=== PATIENT | female | born 1970 | race Caucasian/White ===

== ENCOUNTER 2020-04-13 07:02 | Day surgery (SDC) | payer BC, SELFPAY ==
--- NOTE | 2020-04-10 17:34 | PCM.HPOB.BLA ---
- Problem List (1) DUB (dysfunctional uterine bleeding) Status: Acute History and Physical Date of Admission: 04/13/20 DATE OF SERVICE: March 31, 2020 PROBLEM: menorrhagia with regular cycle, desires permanent sterilization DIAGNOSIS: menorrhagia with regular cycle SUBJECTIVE: Cycles are regular but heavy. Not currently having vaginal intercourse. Not on control at this time. PAST SURGICAL HISTORY: PAST SURGICAL HISTORY PAST MEDICAL HISTORY SOCIAL HISTORY Current Outpatient Medications on File Prior to Visit Medication Sig ? hydrOXYzine pamoate (VISTARIL) 25 mg capsule Take 1 capsule by mouth three times daily as needed for Anxiety. ? SITagliptin (JANUVIA) 100 mg tablet Take 1 tablet by mouth once daily. ? busPIRone (BUSPAR) 7.5 mg tablet Take 1 tablet by mouth twice daily. ? dapagliflozin (FARXIGA) 5 mg tablet Take 1 tablet by mouth once daily. Take one daily in the morning ? buPROPion XL (WELLBUTRIN XL) 150 mg 24 hr tablet Take 1 tablet by mouth once daily. ? DULoxetine (CYMBALTA) 60 mg capsule Take 1 capsule by mouth once daily. ? gabapentin (NEURONTIN) 300 mg capsule Take 1 capsule by mouth twice daily for 90 days. ? metFORMIN ER (GLUCOPHAGE XR) 500 mg 24 hr tablet Take 1 tablet by mouth once daily. ? glimepiride (AMARYL) 4 mg tablet Take 1 tablet by mouth twice daily with meals. ? blood sugar diagnostic (ACCU-CHEK SONIA PLUS TEST STRP) test strip Test blood sugar(s) 1 times daily and as needed. Dx: Type 2 DM - Controlled E11.9 Insulin: No ? pantoprazole DR (PROTONIX) 40 mg tablet Take 1 tablet by mouth once daily. ? nadolol (CORGARD) 40 mg tablet Take 1 tablet by mouth once daily. ? losartan (COZAAR) 100 mg tablet Take 1 tablet by mouth once daily. ? atorvastatin (LIPITOR) 10 mg tablet Take 1 tablet by mouth daily at bedtime. For cholesterol. ? Blood-Glucose Meter (ONETOUCH ULTRA2 METER) monitoring kit 1 Each as needed. One Touch Meter Kit Diagnosis: Type 2 DM - Controlled E11.9 ? Lancets (ONETOUCH ULTRASOFT LANCETS) lancets Test blood sugar(s) 2 times daily. Dx: Type 2 DM - Controlled E11.9 , Insulin: No ? traZODone (DESYREL) 50 mg tablet Take 1 tablet by mouth daily at bedtime. ? albuterol HFA (PROVENTIL HFA, VENTOLIN HFA) 90 mcg/actuation inhaler Inhale 2 Puffs as instructed every 4 hours as needed for Wheezing/Shortness of Breath. ? Lancets (ACCU-CHEK SOFTCLIX LANCETS) lancets Use as directed. Dx: Type 2 DM - Controlled E11.9 Insulin: No ? CPAP Initiate Auto PAP @ 8-20 cm of water with humidification. Mask: medium [employer] Eson nasal mask without chin strap , filters, tubing, humidifier and lifetime supplies. ? aspirin, enteric coated (ASPIRIN, ENTERIC COATED) 81 mg EC tablet Take 81 mg by mouth once daily. No current facility-administered medications on file prior to visit. ALLERGIES Impression Normal appearing anteverted uterus that measures 97 mm x 48 mm x 53 mm. The central endometrium complex measures 8.1 mm in combined thickness. No abnormal blood flow to suggest a polyp or focal endometrial pathology is observed within the endometrial complex. The contour of the endometrial cavity was normal on 3-D imaging. There is a 5 cm simple appearing cyst in the right ovary. The left ovary is not visualized. There is no free fluid visualized in the peritoneal cavity. Recommendations The simple ovarian cyst is likely benign. Follow up as clinically indicated. EMB: FINAL DIAGNOSIS Endometrium, biopsy (A): - Secretory endometrium. OBJECTIVE: VITALS: BP 120/78 Pulse 80 Resp 14 Ht 5' 3.5 (1.613 m) Wt 210 lb 9.6 oz (95.5 kg) LMP 02/06/2020 BMI 36.72 kg/m? HEENT: Normocephalic, atraumatic, Mucus membranes moist without lesions. NECK: Soft and Supple. No adenopathy , thyromegaly or bruits. SKIN: No lesions. CHEST: Clear to auscultation. No wheezes or rales. Good air exchange. HEART: Regular rate and rhythm No S3 or S4. No gallops or rubs. BACK: Nontender with no CVA tenderness. ABDOMEN: Soft, non-tender, non-distended, no masses, no hepatosplenomegaly. LOWER EXTREMITIES: There was no pitting edema, no palpable cords and no skin changes. ASSESSMENT: menorrhagia, desires permanent sterilization PLAN: Discussed hysteroscopy, D&C, ablation, laparoscopic bilateral salpingectomy. Discussed options for control. She understands a salpingectomy is permanent and irreversible. Discussed that it is likely the ovarian cyst has resolved at this time. Reviewed indications for cystectomy or oophorectomy, and she agrees with a cystectomy or oophorectomy if the cyst has significantly enlarged in size or has concerning features at time of laparoscopy. The rationale for the proposed surgery was discussed in addition to risks, benefits, and alternatives. General pre- and post-operative care was reviewed. Questions were answered. After discussion, the patient indicated a desire to proceed with the planned surgery. Merced Gomez, DO
[2020-04-13] VITALS (7 sets, daily range): BP systolic 118–139; BP diastolic 60–85; PULSE 70–91; RESP 16–18; TEMP 36.4–37.3; O2SAT 92–99; BMI 37.0
[2020-04-13] MEDS: Lactated Ringers 1,000 ML 100 ML IV ×2 (07:25→10:21)
[2020-04-13 07:39] LABS: Internal QC Validated? YES +Cl - CLEAR BKGD; Pregnancy, Urine Negative Negative
[2020-04-13 08:05] LABS: Bedside Glucose 131 mg/dL (70-110)
--- NOTE | 2020-04-13 08:40 | FALS_PTH ---
PATIENT: KAMILA IRIZARRY [place] [facility] [place][id number] AGE/SX: 50/F ROOM: RE04/13/[address]: Dr. Merced Gomez DO : 1970 BED: DIS: 04/13/2020 SPEC #: [id number] RECD: 04/13/20 11:14 STATUS: BORA EL #: [id number] JODI: 04/13/20 08:[address]: Merced Gomez DEPT: SURGICAL PATHOLOGY RECD BY: Corina Petty ENTERED: 04/13/20 12:27 SP TYPE: FALL TUBES OTHR DR: Dr. Adalberto Nolasco MD Tissues: A - Fallopian tube B - Endometrium, NOS Procedures: Surgery Specimen Level II Surgery Specimen Level IV HEADER OPERATION: Hysteroscopy, D & C, Anne ablation PRE-OP DIAGNOSIS: Dysfunctional uterine bleeding TISSUE SUBMITTED: A - Bilateral tubes, B - Endometrial curettings MICROSCOPIC DIAGNOSIS A. Bilateral fallopian tubes, salpingectomy: Bilateral fallopian tubes including fimbrial ends, no pathologic diagnosis. B. Endometrial curettings: Proliferative endometrium. Fragments of benign ecto- and endocervical mucosa. NANCI:mira 04/14/2020 MICROSCOPIC DESCRIPTION Slides are reviewed. GROSS DESCRIPTION A - Received in fixative is one container labeled with the patient's name and designated bilateral fallopian tubes. The specimen consists of bilateral fallopian tubes including fimbrial ends measuring 2.5 cm in length and 0.5 cm in diameter and 2 cm in length and 0.5 cm in diameter. The fallopian tubes are not identified as right or left. Sections reveal unremarkable cut surfaces. Also present in the container are two detached pieces of tubular ruiz soft tissue measuring 1 x 0.5 x 0.5 cm and 0.5 x 0.5 x 0.5 cm. The entire specimen is submitted in two cassettes as follows: 1 - one fallopian tube, 2 - second fallopian tube and detached pieces of tissue. B - Received in fixative is one container labeled with the patient's name and designated endometrial curettings. The specimen consists of multiple fragments of pink hemorrhagic soft tissue that in aggregate measure 3 x 2.5 x 0.3 cm. The specimen is totally submitted in one cassette. / NANCI:mira 04/13/20 TC:4 CPT: 34900, 77946 x2
--- NOTE | 2020-04-13 09:08 | DCINST_ITS ---
- Discharge Diagnoses Current Active Problems: Current Active and Chronic Problems DUB (dysfunctional uterine bleeding) (Acute) You will use the following diet at home:: Regular Your food should be the consistency of: Regular Discharge Activity: May Not Drive - until you feel strong enough to slam on a brake or turn a steering wheel sharply, May not drive while taking narcotic pain medications., May Shower May shower in (days): 1 May resume sexual activity in: 1 week - no tampons, no intercourse, no hot tubs, no tub baths for 1 week Ice area for (Minutes): 15 Weight Bearing Status: Weight bearing as tolerated Lifting Restrictions: Nothing greater than 20 lbs for 2 weeks Call your doctor if your incision/area has: Sudden Increased Bleeding, Increased Pain/ Swelling, Increased Redness, Foul Smelling Discharge, Swelling at the incision site Call your doctor if you observe: Fever of 101 or Higher, Inability to urinate, Inability to have a bowel movement, Using more than one pad per hour, Shortness of breath, Dizziness, Fainting spells, Swelling in the ankles, Chest pain, Increased palpitations (irregular heartbeat), Calf discomfort, Uncontrolled pain Suture Line Care: Avoid Pulling/Pushing, Avoid Pinching/Bending Cleanse incision/area with: Soap & Water Allergies/Adverse Reactions: Allergies morphine Adverse Reaction (Verified 04/13/20 07:40) Nausea/Vom/Diarrhea Medications to take at Discharge Glimepiride 4 tab PO BID 06/06/16 Losartan Potassium 100 mg PO DAILY 06/06/16 Metformin HCl [Metformin HCl ER] 500 mg PO DAILY 06/06/16 Nadolol 40 mg PO DAILY 06/06/16 Pantoprazole Sodium [Protonix] 40 mg PO DAILY 06/06/16 Aspirin [Aspirin EC] 81 mg PO DAILY 04/06/20 Atorvastatin Calcium [Lipitor] 10 mg PO QHS 04/06/20 Bupropion HCl [Bupropion Xl] 150 mg PO DAILY 04/06/20 Buspirone HCl 7.5 mg PO BID 04/06/20 Dapagliflozin Propanediol [Farxiga] 5 mg PO DAILY 04/06/20 Duloxetine HCl 60 mg PO DAILY 04/06/20 Gabapentin [Neurontin] 300 mg PO BIDCM 04/06/20 traZODone [Desyrel] 50 mg PO QHS 04/06/20 Primary Care Physician: Adalberto Nolasco MD [Primary Care Provider] - Test Results: Test results from this visit will be discussed in further detail at your follow- up appointment, if applicable. Please Follow Up With: Merced Gomez, When: 1 week
--- NOTE | 2020-04-13 09:17 | OP.PCM_ITS ---
Problem List (1) DUB (dysfunctional uterine bleeding) Status: Acute (2) Request for sterilization Status: Acute Report of Operation Date of Procedure: 04/13/20 Pre-Operative Diagnosis: Menorrhagia, DUB, desires sterilization Post-Operative Diagnosis: As above, endometriosis Surgery/Procedure Performed:: Laparoscopic bilateral salpingectomy, hysteroscopy, D&C, Anne ablation Description of Surgical Findings:: The bilateral fallopian tubes were adhered to the ovaries. The bowel was minimally adhered to the right adnexa with thin, filmy adhesions. There was one endometriosis lesion noted along the left IP ligament. The uterus was normal- appearing. The right ovary was normal-appearing. The left ovary had a small, about 2 cm, simple cyst present. The posterior cul-de-sac was normal-appearing. Minimal descent of uterus and cervix from below. registered safety engineer: Kelton Dewitt - He assisted with prepping and draping the patient. He assisted with the laparoscopic bilateral salpingectomy from start to finish. He closed the port sites. Type of Anesthesia:: General Special Medications: None Specimen's removed: Bilateral fallopian tubes, endometrial curettings Drains: None Estimated Blood Loss (mL): < 50 cc Description of Procedure: Start 09 Stop 1054 The patient was taken to the operating room and general anesthesia was found to be adequate. She was prepped and draped in dorsal lithotomy position using yellowfin stirrups. A weighted speculum was placed from below and the single- tooth tenaculum was placed on the anterior lip of the cervix. The uterine manipulator was placed. Gloves were changed and attention was turned to the abdominal portion of the procedure. All port sites were infiltrated with local. An incision was made infraumbilically to accommodate a 5 mm port. This port was placed under direct visualization using the laparoscope. Once confirmed intraperitoneal, CO2 insufflation was initiated. A right lateral 5 mm port was placed. A left lateral 5 mm port was placed. Findings were noted as above. The thin filmy adhesions of the bowel to the right adnexa were dissected with blunt dissection. The right fallopian tube was followed out to the fimbriated end. The right fallopian tube was dissected from the right ovary to remove the entire tube. The right fallopian tube was removed in 3 separate segments due to adhesive disease. The left fallopian tube was then followed out to the fimbriated end, adhesions to the ovary were dissected using a combination of sharp and blunt dissection. The left fallopian tube was removed completely. Bilateral fallopian tubes were sent to pathology for review. Bleeding was hemostatic. The abdomen was exsufflated. The port sites were closed with Monocryl and Dermabond glue. Attention was then turned back to the bottom portion of the procedure. A weighted speculum was placed in the vagina. The uterine manipulator was removed. The cervix was serially dilated to accommodate the hysteroscope. Hysteroscope was advanced to the fundus of the uterus and distended with normal saline. Uterine cavity was normal-appearing and bilateral tubal ostia were visualized. There were no polyps or fibroids noted. Hysteroscope was then removed. The uterus sounded to 10 cm. The cervical length was 4 cm. A sharp curettage was performed and the endometrial curettings were sent to pathology for review. The Anne device was then set to a cavity length of 6 cm. The device was then inserted to the fundus of the uterus. The cavity assessment failed. The Anne device was removed and the uterus was sounded and assessed for perforation. No perforation was noted. The cervix was noted to be significantly dilated not allowing for good seal. The Anne device was then placed to the fundus of the uterus and set. An Allis clamp was placed around the posterior lip of the cervix to create a good seal. The Anne device then passed the cavity assessment test. The Anne device was deployed and after cauterization was complete the device was removed from the uterus. All instruments were removed from the vagina. Bleeding was hemostatic. Instrument sponge counts were correct. Patient was taken recovery room in stable condition. Grafts/Implants Used: None - Complications None - Admit VTE Documentation VTE Present on Admission: No VTE Mechan Device Prophylaxis: SCD's
[2020-04-13] MEDS: Lidocaine 1%/Epi 1:200 (30ml) 30 ML AMPUL (09:49)
[2020-04-13 11:51] LABS: Bedside Glucose 178 mg/dL (70-110)
[2020-04-13] MEDS: HYDROcodone Bitartrate/Apap 5/325 Tablet PO (12:26)
== END 2020-04-13 13:22 | disposition home or self-care (01) ==
LOC: SDC 07:02 → AC 07:03
PROVIDERS: Anesthesiology; PCP Family Medicine; Referring Provider Obstetrics & Gynecology; Visit Provider Obstetrics & Gynecology
PROC: 0U5B8ZZ Destruction of Endometrium, Via Natural or Artificial Opening Endoscopic (ICD-10-PCS; CPT 58558; principal; 2020-04-13 08:25)
PROC: (CPT 58661; 2020-04-13 08:25)
DX: N93.8 Other specified abnormal uterine and vaginal bleeding (principal); N92.0 Excessive and frequent menstruation with regular cycle; F41.9 Anxiety disorder, unspecified; E11.9 Type 2 diabetes mellitus without complications; N83.201 Unspecified ovarian cyst, right side; Z79.82 Long term (current) use of aspirin; Z79.84 Long term (current) use of oral hypoglycemic drugs; Z79.899 Other long term (current) drug therapy; Z30.2 Encounter for sterilization
CPT/HCPCS: 58563; 58661; 36415; 81025; 82962; 86850; 86900; 86901; 87426; 88302; 88305; C9803; J7120; J2405

== ENCOUNTER → 2022-05-07 | Outpatient (CLI) | payer MEDICAID, SELFPAY ==
[2022-05-07 12:08] LABS: Absolute Lymphocyte Count 2.63 X10^3/uL (0.83-4.51); Absolute Neutrophil Count 7.3 X10^3/uL (2.0-7.7); Basophil# 0.08 X10^3/uL; Basophil% 0.7 % (0-1); Eosinophil# 0.06 X10^3/uL; Eosinophils% 0.5 % (0-5); Hematocrit 43.1 % (37-47); Hemoglobin 14.6 g/dL (12.0-15.0); Lymphocyte # 2.63 X10^3/ul (0.83-4.51); Mean Corp Hgb Conc 33.9 g/dL (32-36); Mean Corpuscular Hgb 30.2 pg (27.0-32.0); Mean Corpuscular Volume 89.2 fL (81-99); Mean Platelet Vol. 10.5 fl (6.2-12.0); Monocyte# 0.76 X10^3/uL; Monocyte% 6.9 % (0-10); NRBC Flagged by Analyzer 0 % (0-5); Neutrophil # 7.32 X10^3/uL (2.7-7.7); Neutrophil % 66.8 % (47-70); Platelet Count 270 K/mm3 (150-450); RBC Distribution Width CV 11.8 % (11.6-14.6); RBC Distribution Width SD 37.7 fl (35.1-43.9); Red Blood Count 4.83 M/mm3 (4.2-5.4)
[2022-05-07 12:34] LABS: Microalbumin,Random Urine 82.1 mg/L (NO RANGE EST.); Microalbumin:Creatinine Ratio 15.8 mg/g CRE (<30 mg/g CRE)
[2022-05-07 12:40] LABS: ALB/GLOB Ratio 0.9 RATIO (0.9-2.4); AST(SGOT) 13 U/L (15-37); Alanine Aminotransfer ALT/SGPT 22 U/L (13-56); Albumin, Serum 3.7 g/dL (3.2-5.0); Alkaline Phosphatase 55 U/L (45-117); BUN 24 mg/dL (7-18); Calcium,Total 9.2 mg/dL (8.5-10.1); Cholesterol 131 mg/dL (200); Creatinine, Serum 0.86 mg/dL (0.55-1.02); EST Glomerular Filtration Rate 74 mL/min (>60); Est Glom Filt Rate - Afr Amer 90 mL/min (>60); Globulin 4.2 g/dL (2.2-4.2); Glucose 200 mg/dL (74-106); Protein, Total 7.9 g/dL (6.4-8.2); Triglycerides 163 mg/dL
[2022-05-07 12:41] LABS: Anion Gap 8 (5-15); Chloride 105 mmol/L (98-107); High Density Lipoprotein 42 mg/dL; Potassium 3.6 mmol/L (3.5-5.1); Sodium Level 137 mmol/L (136-145); Very Low Density Lipoprotein 33 mg/dL (5-40)
== END | disposition home or self-care (01) ==
PROVIDERS: PCP Internal Medicine; Referring Provider Internal Medicine; Visit Provider Internal Medicine
DX: E11.42 Type 2 diabetes mellitus with diabetic polyneuropathy (principal)
CPT/HCPCS: 36415; 80053; 80061; 82043; 82570; 85025

== ENCOUNTER 2023-04-06 10:47 | Emergency (ER) | payer OTHER, SELFPAY ==
[2023-04-06 10:48] VITALS: BP 140/88; PULSE 86; RESP 20; TEMP 37.2; O2SAT 98; BMI 34.8
--- NOTE | 2023-04-06 11:02 | RAD_ITS ---
STUDY: X-RAY CHEST REASON FOR EXAM: Female, 53 years old. cough, SOB TECHNIQUE: Single AP portable view of the chest. COMPARISON: None. FINDINGS: 1.5 cm nodular opacity projecting over the lower right lung may represent a pulmonary nodule. Correlation with CT the chest with contrast is recommended. There is no demonstrated pleural abnormality. Normal size heart. Normal mediastinum and russ. Normal visualized pulmonary arteries. Normal visualized aortic arch and descending thoracic aorta. Normal visualized thoracic spine. Normal visualized ribs, clavicles, and shoulders. There is no demonstrated abnormality of the visualized soft tissue structures of the upper abdomen. RAD/Chest 1 View (Portable) IMPRESSION: Possible right lower lobe pulmonary nodule correlation with CT the chest with contrast is recommended. Electronically Signed: Dimitris Wood MD at 12:25 [facility] ,
--- NOTE | 2023-04-06 11:03 | EX.ED.DYSGE1 ---
HPI History of Present Illness Chief Complaint: General Illness Narrative Narrative: 53-year-old female past medical history of asthma, presents with cough and continued shortness of breath. Her symptoms began on Friday of last week, 6 days ago. She states she has a sick contact and her nephew who is improving. She states she feels more short of breath and has somewhat of a dry occasionally productive cough. She feels her fevers have resolved but she is having bodyaches and muscle aches as well. She has not taken steroids for her asthma in years. She states that she was wheezing but uses her albuterol. She is concerned because of her continued shortness of breath and coughing. [facility] Medical History Anxiety and depression Carpal tunnel syndrome Diabetes type 2, controlled Endometriosis GERD (gastroesophageal reflux disease) Heel spur History of gallstones Hyperlipemia Hypertension IBS (irritable bowel syndrome) Neuropathy Polycystic ovaries Restless leg syndrome Seasonal allergies Sleep apnea Home Medications aspirin 81 mg tablet,delayed release 81 mg PO DAILY 04/06/20 [History Last Taken Unknown] ibuprofen 600 mg tablet 600 mg PO Q6H PRN PRN Pain Score 6-10 #30 tabs 04/13/20 [Rx Last Taken Unknown] blood pressure monitor #1 ea 08/16/21 [Rx Last Taken Unknown] bupropion HCl 100 mg tablet,12 hr sustained-release (Wellbutrin SR) 100 mg PO BID 09/06/21 [History Last Taken Unknown] atorvastatin 10 mg tablet 10 mg PO QHS #30 tabs 12/03/21 [Rx Last Taken Unknown] metformin 500 mg tablet,extended release 24 hr 500 mg PO DAILY #30 tabs 12/03/21 [Rx Last Taken Unknown] spironolactone 50 mg tablet 50 mg PO BID #60 tabs 05/29/22 [Rx Last Taken Unknown] buspirone 10 mg tablet 10 mg PO TID #270 tabs 07/30/22 [Rx Last Taken Unknown] nadolol 40 mg tablet See Rx Instructions .Route .COMPLEX #30 tabs 07/30/22 [Rx Last Taken Unknown] dapagliflozin propanediol 5 mg tablet 5 mg PO DAILY DIABETES #30 tabs 10/30/22 [Rx Last Taken Unknown] albuterol sulfate 90 mcg/actuation aerosol inhaler 2 puff inhalation Q6H PRN shortness of breath or wheezing #8.5 grams 11/15/22 [Rx Last Taken Unknown] glimepiride 4 mg tablet 4 mg PO .BID #180 tabs 11/18/22 [Rx Last Taken Unknown] escitalopram oxalate 5 mg tablet (Lexapro) 5 mg PO DAILY #30 tabs 12/13/22 [Rx Last Taken Unknown] losartan 100 mg tablet 100 mg PO DAILY #30 tabs 12/13/22 [Rx Last Taken Unknown] minocycline 100 mg capsule 100 mg PO BID #60 caps 12/13/22 [Rx Last Taken Unknown] pantoprazole 40 mg tablet,delayed release 40 mg PO DAILY #90 tabs 01/20/23 [Rx Last Taken Unknown] trazodone 50 mg tablet 50 mg PO QHS PRN insomnia #90 tabs 01/20/23 [Rx Last Taken Unknown] gabapentin 100 mg capsule 100 mg PO QHS #30 caps 01/30/23 [Rx Last Taken Unknown] valacyclovir 500 mg tablet (Valtrex) 500 mg PO BID #6 tabs 01/30/23 [Rx Last Taken Unknown] Allergy/AdvReac Type Severity Reaction Status Date / Time morphine AdvReac Nausea/Vom/ Verified 02/17/23 14:38 Diarrhea Family History Father Dementia Mother Heart disease CVA (cerebral vascular accident) Sister Uterine cancer Surgical History History of bilateral breast reduction surgery History of cholecystectomy History of ectopic History of endometrial ablation Social History household members: other details: nephew and girlfriend current occupational status: employed current occupation: [employer] Smoking Status: Never smoker Electronic Cigarette Use: not used alcohol intake: current alcohol intake frequency: a few times a month substance use type: marijuana what type of physical activity do you participate in: walking frequency: daily do you feel safe at home: Yes ROS ROS ED ROS Narrative Constitutional: Positive fever-resolved, no chills. HEENT: No sore throat. No neck pain. No loss of vision. No rhinorrhea. Cardiovascular: No chest pain. No palpitations. No pedal edema. Respiratory: Positive cough, continued/increasing shortness of breath. Abdominal: No abdominal pain. No nausea. No vomiting. Genitourinary: No dysuria. No hematuria. Musculoskeletal: Positive myalgias and arthralgias. Neurologic: No headaches. No dizziness. No lightheadedness. Skin: No rash. No change in color. Psychiatric: No depression. No anxiety. EXAM Physical Exam Narrative Exam Narrative: Afebrile. Vital signs noted. Nontoxic-appearing. HEENT: Normocephalic. Atraumatic. PERRL, EOMI. Neck soft and supple. No point tenderness or step off. Cardiovascular: Regular rate and rhythm. No murmurs, rubs, or gallops appreciated. Respiratory: No tachypnea. Lungs clear to auscultation bilaterally. Speaking in full sentences. Moving a good amount of air. Gastrointestinal: Abdomen soft, nontender, with normoactive bowel sounds. No rebound or guarding. Neurological: Awake. Alert. Nonfocal, nonlateralizing. Skin: No rash. Normal color. No pallor. Musculoskeletal: No pedal edema. Full range of motion extremities. Const Vital Signs: 04/06/23 10:48 Temperature 98.9 F Temperature Source Temporal Pulse Rate 86 Respiratory Rate 20 H Blood Pressure 140/88 H Blood Pressure Mean 105 Pulse Ox 98 Oxygen Delivery Method Room Air MDM MDM MDM Narrative Medical decision making narrative: In the differential diagnosis is COVID versus influenza versus RSV versus other viral syndrome versus asthma exacerbation. Her pulse ox is 98% on room air without evidence of hypoxia, she is not tachycardic. I have low suspicion for pulmonary embolism as she is essentially PERC negative. Chest x-ray in 1 view was obtained and interpreted by myself independently. She was swabbed for COVID, influenza, and RSV. I do feel that she may benefit from a burst of steroids. Risk benefits with her history of diabetes was weighed and discussed with the patient. Chest x-ray 1 view interpreted by myself shows no evidence of pneumonia. I reviewed the radiology report which confirms my independent interpretation. They comment on a possible right lower lobe pulmonary nodule. I feel that she can be followed up as an outpatient with CT. She was given her first dose of prednisone here in the emergency department and prescription written for burst for the next 6 days for a 1 week total. She is to start it tomorrow. She requested a breathing treatment here, but her lungs are clear to auscultation bilaterally and she has a good oxygen saturation and is not wheezing here. She can continue her albuterol at home. She will be informed of her pulmonary nodule as well and requirement for follow-up as an outpatient. Disposition is discharged home in stable condition. History & Record Review Discussion w/independent historian: Patient Additional record(s) reviewed:: Prior ED visit Radiography Diagnostic Testing: Clinical Impression(s) from Imaging Studies Chest X-Ray 04/06/23 11:02 IMPRESSION: Possible right lower lobe pulmonary nodule correlation with CT the chest with contrast is recommended. Electronically Signed: Dimitris Wood MD at 12:25 EST , Discharge Plan Triage Chief Complaint: General Illness ED Provider: Fidencio Moreira Dx/Rx/DC Orders Clinical Impression: Influenza B, Shortness of breath, Incidental pulmonary nodule Instructions: ED Dyspnea, ED Influenza (Adult), ED Pulmonary Nodule, Solitary Prescriptions: No Action (DME) blood pressure monitor Kit See Rx Instructions .Route Qty: 1 0RF Rx Instructions: As directed bupropion HCl [Wellbutrin SR] 100 mg tablet sustained-release 12 hr 100 mg PO BID dapagliflozin propanediol 5 mg tablet 5 mg PO DAILY Qty: 30 2RF aspirin 81 MG tablet,delayed release (DR/EC) 81 mg PO DAILY ibuprofen 600 MG tablet 600 mg PO Q6H PRN PRN (Reason: Pain Score 6-10) Qty: 30 0RF metformin 500 mg tablet extended release 24 hr 500 mg PO DAILY Qty: 30 2RF atorvastatin 10 mg tablet 10 mg PO QHS Qty: 30 2RF spironolactone 50 mg tablet 50 mg PO BID Qty: 60 2RF buspirone 10 mg tablet 10 mg PO TID Qty: 270 1RF nadolol 40 mg tablet See Rx Instructions .ROUTE .COMPLEX Qty: 30 5RF Dose Instruction: TAKE 1 TABLET BY MOUTH EVERY DAY Rx Instructions: TAKE 1 TABLET BY MOUTH EVERY DAY albuterol sulfate 90 mcg/actuation HFA aerosol inhaler 2 puff inhalation Q6H PRN (Reason: shortness of breath or wheezing) Qty: 8.5 0RF glimepiride 4 mg tablet 4 mg PO .BID Qty: 180 1RF losartan 100 mg tablet 100 mg PO DAILY Qty: 30 5RF escitalopram oxalate [Lexapro] 5 mg tablet 5 mg PO DAILY Qty: 30 5RF minocycline 100 mg capsule 100 mg PO BID Qty: 60 5RF pantoprazole 40 mg tablet,delayed release (DR/EC) 40 mg PO DAILY Qty: 90 1RF trazodone 50 mg tablet 50 mg PO QHS PRN (Reason: insomnia) Qty: 90 1RF valacyclovir [Valtrex] 500 mg tablet 500 mg PO BID Qty: 6 0RF gabapentin 100 mg capsule 100 mg PO QHS Qty: 30 0RF Primary Care Provider: Clementina Jay Referrals: Clementina Jay MD [Primary Care Provider] - 3-5 Days if not improving Activity Restrictions/Additional Instructions: Continue your albuterol every 4-6 hours as needed. Start the steroids tomorrow as you received your first dose here in the emergency department. There is the possibility of a pulmonary nodule on your chest x-ray. You may require an outpatient CT scan of your chest with your primary care physician. Follow-up regarding this. Disposition Disposition: Home, Self Care
--- OUTSIDE RECORDS SUMMARY | 2023-04-06 11:51 | XMS RPT_ITS | CCD ---
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 Name Role Phone DANTE HOANG Unavailable Unavailable MACK NOLASCO Unavailable Unavailable DANTE HOANG Unavailable Unavailable MACK NOLASCO Unavailable Unavailable MACK NOLASCO () Unavailable Unav ailable Mack Nolasco MD Primary Care Provider Mack Nolasco MD Primary Care Provider Trinh Jay MD Primary Care Provider Clementina Jay MD Primary Care Provider Clementina Jay MD Primary Care Provider [phone] Allergies Allergy Classification Reported Allergen(s) Allergy Type Date of Onset Reaction(s) Facility (13 sources) Contrast media; Translations: [CONTRAST DYE] Propensity to adverse reactions to drug (disorder) 6 [facility] Repository (13 sources) Grass pollen; Translations: [GRASS POLLEN] Propensity to adverse reactions to drug (disorder) 6 [facility] Repository (13 sources) lisinopril; Translations: [LISINOPRIL] Drug Allergy 2 Cough [facility] Repository (13 sources) metFORMIN; Translations: [METFORMIN] Drug Allergy 6 [facility] Repository (13 sources) Pollen; Translations: [POLLEN] Propensity to adverse reactions (disorder) 6 [facility] Repository (13 sources) rOPINIRole; Translations: [ROPINIROLE] Drug Allergy 2 Other: See Comments [facility] Other [place] Repository (1 source) OTHER; Translations: [OTHER] Propensity to adverse reactions (disorder) 7 [facility] Other [place] Repository (12 sources) otc cold medications [Other] Propensity to adverse reactions 7 [facility] Work Phone: Medications Current Medications Medication Drug Class(es) Dates Sig (Normalized) Sig (Original) minocycline 100 mg oral capsule (4 sources) Tetracycline-clas s Drug Start: 08-09-2021 End: 11-07-2021 take 1 capsule by mouth twice daily minocycline (MINOCIN, DYNACIN) 100 mg capsule Take 1 capsule by mouth twice daily. 60 capsule 2 08/09/2021 11/07/2021 Active Completed/Discontinued Medications Medication Drug Class(es) Dates Sig (Normalized) Sig (Original) [id number] 200 actuat albuterol 0.09 mg/actuat metered dose inhaler (12 sources) beta2-Adrenergic Agonist Start: 09-26-2020 End: 05-17-2021 take 2 puff(s) by inhalation every four hours as needed for wheezing albuterol HFA (PROVENTIL HFA, VENTOLIN HFA) 90 mcg/actuation inhaler Indications: Mild intermittent asthma with acute exacerbation Inhale 2 Puffs as instructed every 4 hours as needed for wheezing/shortness of breath. 1 Each 2 05/17/2021 Active Problems Active Problems Problem Classification Problem Date Documented Date Episodic/Chronic Abdominal pain (1 source) Chronic pelvic pain of female; Translations: [Pelvic and perineal pain] Episodic Anxiety disorders (12 sources) Anxiety state; Translations: [Generalized anxiety disorder] 12-12-2014 Chronic Asthma (1 source) Mild intermittent asthma; Translations: [Mild intermittent asthma with (acute) exacerbation] Chronic Diabetes mellitus without complication (12 sources) Diabetes mellitus; Translations: [Type 2 diabetes mellitus without complications] Onset: 05-22-2011 05-22-2011 Chronic Disorders of lipid metabolism (12 sources) Hyperlipidemia; Translations: [Hyperlipidemia, unspecified] Onset: 01-11-2010 01-11-2010 Chronic Endometriosis (1 source) Endometriosis (clinical); Translations: [Endometriosis, unspecified] Chronic Esophageal disorders (12 sources) Gastroesophageal reflux disease; Translations: [Gastro-esophageal reflux disease without esophagitis] 11-09-2004 Chronic Essential hypertension (12 sources) Hypertensive disorder; Translations: [Essential (primary) hypertension] Onset: 02-13-2011 02-13-2011 Chronic Immunizations and screening for infectious disease (4 sources) Patient encounter status; Translations: [Encounter for screening for human papillomavirus (HPV)] Episodic Mood disorders (12 sources) Depressive disorder; Translations: [Depression] Onset: 08-17-2009 08-17-2009 Chronic Other endocrine disorders (12 sources) Polycystic ovary; Translations: [Polycystic ovarian syndrome] 11-09-2004 Chronic Other hereditary and degenerative nervous system conditions (12 sources) Restless legs; Translations: [Restless legs syndrome] Onset: 07-12-2010 07-12-2010 Chronic Other nutritional; endocrine; and metabolic disorders (1 source) Obesity, unspecified; Translations: [Obesity, unspecified] Onset: 11-21-2016 Chronic Other nutritional; endocrine; and metabolic disorders (12 sources) Metabolic syndrome X; Translations: [Metabolic syndrome] Onset: 12-05-2005 12-05-2005 Chronic Other nutritional; endocrine; and metabolic disorders (12 sources) Body mass index 30+ - obesity; Translations: [Obesity, unspecified] 03-18-2017 Chronic Other screening for suspected conditions (not mental disorders or infectious disease) (1 source) Cancer cervix screening status; Translations: [Encounter for screening for malignant neoplasm of cervix] Episodic Other skin disorders (3 sources) Hidradenitis suppurativa; Translations: [Hidradenitis suppurativa] Episodic Other skin disorders (1 source) Sebaceous gland hypertrophy; Translations: [Other specified follicular disorders] Episodic Other skin disorders (1 source) Hirsutism; Translations: [Hirsutism] Episodic Spondylosis; intervertebral disc disorders; other back problems (12 sources) Cervical disc disorder; Translations: [Other cervical disc displacement, unspecified cervical region] 10-04-2019 Chronic Unclassified (1 source) Other somatoform disorders; Translations: [Other somatoform disorders] Onset: 11-21-2016 Chronic Unclassified (12 sources) PMH - PAST MEDICAL HISTORY OF 11-09-2004 Past or Other Problems Problem Classification Problem Date Documented Da te Episodic/Chronic Nonmalignant breast conditions (12 sources) Hypertrophy of breast; Translations: [Hypertrophy of breast] Onset: 08-21-2004 08-21-2004 Episodic Other and unspecified benign neoplasm (12 sources) Benign neoplasm of liver and/or biliary ducts; Translations: [Benign neoplasm of liver] Onset: 03-20-2006 03-20-2006 Episodic Other connective tissue disease (12 sources) Calcaneal spur; Translations: [Calcaneal spur, unspecified foot] Onset: 06-04-2005 06-04-2005 Episodic Other nervous system disorders (12 sources) Bran's palsy; Translations: [Bran's palsy] Onset: 09-09-2011 09-09-2011 Episodic Residual codes; unclassified (12 sources) Insomnia; Translations: [Insomnia, unspecified] Onset: 01-11-2010 01-11-2010 Episodic Spondylosis; intervertebral disc disorders; other back problems (20 sources) Cervical disc disorder with radiculopathy; Translations: [Cervical disc disorder with radiculopathy, unspecified cervical region] Onset: 06-19-2016 06-19-2016 Episodic Sprains and strains (12 sources) Sprain of foot; Translations: [Unspecified sprain of unspecified foot, initial encounter] Onset: 05-01-2005 05-01-2005 Episodic Results Test Name Value Interpretation Reference Range Facil ity Vital Signs Date Time Vital Sign Value Performing Clinician Faci lit 06-07-2021 08:50-0400 Body height 162.6 cm Merced Gomez MD Work Phone: [facility] 06-07-2021 08:50-0400 Body weight 96.07 kg Merced Gomez MD Work Phone: [facility] 06-07-2021 08:50-0400 Diastolic blood pressure 90 mm[Hg] Merced Gomez MD Work Phone: [facility] 06-07-2021 08:50-0400 Systolic blood pressure 130 mm[Hg] Merced Gomez MD Work Phone: [facility] Encounters Encounter Date Encounter Type Care Provider Facility Start: 01-30-2023 Lobo harris MD Work Phone: [facility] Procedures Date Procedure Procedure Detail Performing Clinician Start: 06-07-2021 End: 06-07-2021 Mammography Merced Gomez MD Work Phone: Start: 10-18-2020 Mammography Adalberto Nolasco MD Work Phone: Plan of Treatment Date Care Activity Detail Author Start: 03-18-2027 Urine microalbumin profile [facility] Start: 06-07-2026 HPV TESTING HPV TESTING [facility] Start: 06-07-2026 PAP TESTING PAP TESTING [facility] Start: 06-07-2026 Screening for malign ant neoplasm of cervix [facility] Start: 10-11-2022 Influenza vaccination Influenza Vacc ine (#1) [facility] Start: 08-09-2022 Hepatitis B surface antibody level LDL CHOLESTEROL [facility] Start: 06-07-2022 Mammography MAMMOGRAM [facility] Start: 06-07-2022 Screening for malign ant neoplasm of breast Mammogram Screening [facility] Start: 02-08-2022 Hemoglobin A1c measurement HbA1C [facility] Start: 02-08-2022 Hemoglobin A1c/Hemoglobin.total in Blood HBA1C [facility] Start: 11-20-2021 HPV TESTING HPV TESTING [facility] Start: 11-20-2021 PAP TESTING PAP TESTING [facility] Start: 10-18-2021 Mammography MAMMOGRAM [facility] Start: 10-11-2021 Influenza vaccination C [facility] Start: 09-26-2021 ANNUAL PCP TEAM MANAGER UNIX YEHUDA DISEASE VISIT ANNUAL PCP TEAM CHRONIC DISEASE VISIT [facility] Start: 09-26-2021 COVID-19 VACCINE (#1) COVID-19 VACCI NE (#1) [facility] Immunizations Immunization Date Immunization Notes Care Provider Fa hola 03-28-2020 influenza, injectabl e, quadrivalent, contains preservative Mack Nolasco MD Work Phone: [facility] 03-28-2020 influenza virus vaccine, unspecified formulation Pretty Anderson MD Work Phone: [facility] 04-05-2019 influenza, injectabl e, quadrivalent, contains preservative Mack Nolasco MD Work Phone: [facility] 01-02-2018 influenza, injectabl e, quadrivalent, contains preservative Mack Nolasco MD Work Phone: [facility] 03-18-2017 tetanus toxoid, redu joao diphtheria toxoid, and acellular pertussis vaccine, adsorbed Mack Nolasco MD Work Phone: [facility] 11-20-2016 influenza, injectabl e, quadrivalent, contains preservative Mack Nolasco MD Work Phone: [facility] 11-21-2015 influenza, injectabl e, quadrivalent, contains preservative Mack Nolasco MD Work Phone: [facility] Work Phone: 11-11-2014 influenza, injectabl e, quadrivalent, contains preservative Mack Nolasco MD Work Phone: [facility] 12-14-2013 influenza, seasonal, injectable Mack Nolasco MD Work Phone: [facility] 11-07-2011 influenza virus vaccine, unspecified formulation Mack Nolasco MD Work Phone: [facility] 09-24-2011 pneumococcal polysaccharide vaccine, 23 valent Mack Nolasco MD Work Phone: [facility] Work Phone: 12-12-2007 influenza virus vaccine, unspecified formulation Mack Nolasco MD Work Phone: [facility] 12-05-2005 influenza virus vaccine, unspecified formulation Mack Nolasco MD Work Phone: [facility] 07-26-2005 tetanus and diphther ia toxoids, adsorbed, preservative free, for adult use (2 Lf of tetanus toxoid and 2 Lf of diphtheria toxoid) Mack Nolasco MD Work Phone: [facility] Work Phone: 12-06-2004 influenza virus vaccine, unspecified formulation Mack Nolasco MD Work Phone: [facility] Work Phone: Payers Date Payer Category Payer Medicaid [employer] [id number] 2021-Present [phone] [address] [place] [address] Medicaid [id number] 2021 Medicaid [id number] 2016 Unknown [id number] 2014 Unknown [employer] PPO OOS [id number] 2014-Present [phone] [address] [place] [address] PPO [id number] Social History Date Type Detail Facility Start: 01-17-2016 Tobacco smoking stat [facility] Never smoked tobacco [facility] Start: 09-26-2020 End: 08-09-2021 Alcohol intake Current non-drinker of alcohol (finding) [facility] Start: 1970 Sex Assigned At Female C [facility] Start: 05-28-2021 End: 08-09-2021 Exposure to SARS-CoV-2 (event) Not sure [facility] Start: 01-17-2016 Tobacco use and exposure Smoke less tobacco non-user [facility] Start: 08-09-2021 End: 03-08-2022 History of Social function [facility] Start: 08-09-2021 End: 03-08-2022 Tobacco use panel [facility] Adult Depression Screening Assessment 1 [facility] Start: 02-14-2020 Gender identity Identifies as female gender (finding) [facility] Medical Equipment Procedure Code Equipment Code Equipment Origin al Text Equipment Identifier Dates Start: 04-07-2018 Clinical Notes 11-21-2015 to 01-30-2023 Telephone Encounter - Camilla Rodriguez RN - 01/30/2023 10:53 AM ESTAddendum Note - Pretty Anderson MD - 11/05/2021 1:42 PM EDTTelephone Encounter - Pretty Anderson MD - 11/05/2021 1:41 PM EDT Note Date & Type Note Facility 01-30-2023 Miscellaneous Notes Requested Prescriptions Pending Prescriptions Disp Refills spironolactone (ALDACTONE) 100 mg tablet 90 tablet 3 Sig: Take 1 tablet by mouth once daily. documented in this encounter [facility] 11-05-2021 Miscellaneous Notes Addended by: PRETTY ANDERSON on: 11/05/2021 01:42 PM Modules accepted: Orders Sent rx for spironolactone 100 mg daily Patient currently taking 100mg daily. Please see what dose patient is taking and then will send refill Last ov 08/09/21. documented in this encounter [facility] 08-22-2021 Miscellaneous Notes Reviewed. According to Care Every Where: patient established with [facility]-Dr. Jay 08/16/21. Updated PCP. Donna Booker MA Phoned patient to clarify if Dr Maldonado/Pierre was a PCP she was seeing. Message left for patient to return call to update office with requested information. Reviewed. Spoke with patient and advised she was past due for an office visit and PCP wanted to schedule an OV to go over her recent blood work results. Patient declined appointment and stated Dr Maldonado went over them with me. ----- Message from Mack Nolasco MD sent at 08/17/2021 12:05 PM EDT ----- Patient is overdue for OV. Please call her to schedule appointment so we can go over her recent blood work results. documented in this encounter [facility] 08-10-2021 Miscellaneous Notes Called pt to schedule, left vm, 1st attempt. PEDRO LUIS Romero August 10, 2021 6:43 PM Patient is overdue for follow-up. Please assist in scheduling. Trinidad Mix APRN.JESSICA documented in this encounter [facility] 08-09-2021 Note HNO ID: [id number] Author: Pretty Anderson MD Service: ? Author Type: Physician Type: Progress Notes Filed: 08/09/2021 11:47 AM Note Text: Department of Dermatology Pretty Anderson MD 08/09/2021 CC: This patient is a 51 year old female. Patient presents with: Cyst: groin and axillae painful patient states she has been dealing with these symptoms for a long time but has decided to be treated HPI: Presents today for initial evaluation of cysts in groin and axillae. Reports they are painful and has been dealing with this for a long time. Also complains of spots on face and increased terminal hair growth. -Pt has no other concerns at this time. -Personal history of skin cancer: No -History of blistering sunburns:No -Family history of skin cancer: Yes Paternal uncle-unsure of type -History of joint replacements: No -Pacemaker or defibrillator: No -Need for antibiotics before dental procedures: No SOC: Social History Tobacco Use - Smoking status: Never Smoker - Smokeless tobacco: Never Used Vaping Use - Vaping Use: Never used Substance Use Topics - Alcohol use: No - Drug use: No MEDS: Current outpatient prescriptions: Current Outpatient Medications on File Prior to Visit Medication Sig - nadolol (CORGARD) 40 mg tablet Take 1 tablet by mouth once daily. - atorvastatin (LIPITOR) 10 mg tablet Take 1 tablet by mouth daily at bedtime. For cholesterol. - losartan (COZAAR) 100 mg tablet Take 1 tablet by mouth once daily. - traZODone (DESYREL) 50 mg tablet Take 1 tablet by mouth daily at bedtime. - pantoprazole DR (PROTONIX) 40 mg tablet Take 1 tablet by mouth once daily. - glimepiride (AMARYL) 4 mg tablet Take 1 tablet by mouth twice daily with meals. - metFORMIN ER (GLUCOPHAGE XR) 500 mg 24 hr tablet Take 1 tablet by mouth once daily. - SITagliptin (JANUVIA) 100 mg tablet Take 1 tablet by mouth once daily. - dapagliflozin (FARXIGA) 5 mg tablet Take 1 tablet by mouth once daily. Take one daily in the morning - aspirin, enteric coated (ASPIRIN, ENTERIC COATED) 81 mg EC tablet Take 81 mg by mouth once daily. - albuterol HFA (PROVENTIL HFA, VENTOLIN HFA) 90 mcg/actuation inhaler Inhale 2 Puffs as instructed every 4 hours as needed for wheezing/shortness of breath. (Patient not taking: Reported on 06/07/2021 ) - DULoxetine (CYMBALTA) 30 mg capsule Take 3 capsules by mouth once daily. (Patient not taking: Reported on 06/07/2021 ) - gabapentin (NEURONTIN) 300 mg capsule Take 1 capsule by mouth twice daily for 90 days. - busPIRone (BUSPAR) 7.5 mg tablet Take 1 tablet by mouth twice daily. (Patient not taking: Reported on 06/07/2021 ) - buPROPion XL (WELLBUTRIN XL) 150 mg 24 hr tablet Take 1 tablet by mouth once daily. (Patient not taking: Reported on 06/07/2021 ) - hydrOXYzine pamoate (VISTARIL) 25 mg capsule Take 1 capsule by mouth three times daily as needed for anxiety. (Patient not taking: Reported on 06/07/2021 ) - blood sugar diagnostic (ACCU-CHEK SONIA PLUS TEST STRP) test strip Test blood sugar(s) 1 times daily and as needed. Dx: Type 2 DM - Controlled E11.9 Insulin: No - Blood-Glucose Meter (ONETOUCH ULTRA2 METER) monitoring kit 1 Each as needed. One Touch Meter Kit Diagnosis: Type 2 DM - Controlled E11.9 - Lancets (ONETOUCH ULTRASOFT LANCETS) lancets Test blood sugar(s) 2 times daily. Dx: Type 2 DM - Controlled E11.9 , Insulin: No - Lancets (ACCU-CHEK SOFTCLIX LANCETS) lancets Use as directed. Dx: Type 2 DM - Controlled E11.9 Insulin: No - CPAP Initiate Auto PAP @ 8-20 cm of water with humidification. Mask: medium [employer] Eson nasal mask without chin strap , filters, tubing, humidifier and lifetime supplies. No current facility-administered medications on file prior to visit. ALLERGY: ALLERGIES Allergen Reactions - Metformin watery diarrhea from 500 mg BID of plain metformin - Grass Pollen - Lisinopril Cough - Mri Contrast [Contr* PAIN AND SWELLING IN ARM DAY AFTER MRI - Otc Cold Medication* Dizziness, crawling sensation on skin - Pollen - Requip [Ropinirole] Other: See Comments excessive sweating PAST MEDICAL HISTORY: No chronic skin disease or skin cancer FAMILY HISTORY: No chronic skin disease or skin cancer REVIEW OF SYSTEMS: Patient feels well and denies any recent fevers, chills, or nightsweats. Skin: hidradenitis suppurativa PHYSICAL EXAM: The patient is a pleasant female in no distress. Patient is healthy, well developed, well nourished and in otherwise good health. she is alert and oriented x 3. A skin exam was done of the axilla, inguinal folds, abdomen Erythematous nodules under abdominal pannus, in inguinal folds Axilla clear today with no scarring or nodules Increased terminal hair growth at jawline Yellow firm papules with central dell on left medial cheek x 2 Impression/Assessment/Plan Hidradenitis Suppurativa, Boles Stage II - Discussed etiology and chronic natu (more content not included)... [facility] 08-09-2021 Instructions Pretty Anderson MD - 08/09/2021 11:39 AM EDT Minocycline. Risks and side effects include sun sensitvity, headache, dizziness, pigmentary changes and drug-induced lupus Spironolactone is a medication which is used in dermatology for its anti-androgenic effects and efficacy in treating acne, excess facial or body hair (hirsutism) or female pattern hair loss (androgenetic alopecia). It can also be used as a diuretic and antihypertensive (blood pressure medication). -Start spironolactone 50 mg once daily for 7 days then 100 mg daily until follow up -Adverse effects: Spironolactone is a category C medication. It has been shown to cause feminization of the male fetus in animal studies. Therefore, you should not get on this medication. This medication could decrease your blood pressure and/or cause dizziness. For this reason, we monitor your blood pressure at every office visit while you are on this medication. Dehydration is a risk if you do not stay well hydrated (recommend 6-7 glasses of water daily). Minor GI symptoms can occur. We recommend you take the medication with food. Increased potassium level (hyperkalemia) is a possible side effect. You should not over indulge in foods high in potassium. Some women complain of breast tenderness and/or irregular menses while on the medication. As with any medication, an allergic reaction such as a rash is a possibility. documented in this encounter [facility] 08-09-2021 History of Presen t illness Narrative Department of Dermatology Pretty Anderson MD 08/09/2021 CC: This patient is a 51 year old female. Patient presents with: Cyst: groin and axillae painful patient states she has been dealing with these symptoms for a long time but has decided to be treated HPI: Presents today for initial evaluation of cysts in groin and axillae. Reports they are painful and has been dealing with this for a long time. Also complains of spots on face and increased terminal hair growth. -Pt has no other concerns at this time. -Personal history of skin cancer: No -History of blistering sunburns:No -Family history of skin cancer: Yes Paternal uncle-unsure of type -History of joint replacements: No -Pacemaker or defibrillator: No -Need for antibiotics before dental procedures: No SOC: Social History Tobacco Use Smoking status: Never Smoker Smokeless tobacco: Never Used Vaping Use Vaping Use: Never used Substance Use Topics Alcohol use: No Drug use: No MEDS: Current outpatient prescriptions: Current Outpatient Medications on File Prior to Visit Medication Sig nadolol (CORGARD) 40 mg tablet Take 1 tablet by mouth once daily. atorvastatin (LIPITOR) 10 mg tablet Take 1 tablet by mouth daily at bedtime. For cholesterol. losartan (COZAAR) 100 mg tablet Take 1 tablet by mouth once daily. traZODone (DESYREL) 50 mg tablet Take 1 tablet by mouth daily at bedtime. pantoprazole DR (PROTONIX) 40 mg tablet Take 1 tablet by mouth once daily. glimepiride (AMARYL) 4 mg tablet Take 1 tablet by mouth twice daily with meals. metFORMIN ER (GLUCOPHAGE XR) 500 mg 24 hr tablet Take 1 tablet by mouth once daily. SITagliptin (JANUVIA) 100 mg tablet Take 1 tablet by mouth once daily. dapagliflozin (FARXIGA) 5 mg tablet Take 1 tablet by mouth once daily. Take one daily in the morning aspirin, enteric coated (ASPIRIN, ENTERIC COATED) 81 mg EC tablet Take 81 mg by mouth once daily. albuterol HFA (PROVENTIL HFA, VENTOLIN HFA) 90 mcg/actuation inhaler Inhale 2 Puffs as instructed every 4 hours as needed for wheezing/shortness of breath. (Patient not taking: Reported on 06/07/2021 ) DULoxetine (CYMBALTA) 30 mg capsule Take 3 capsules by mouth once daily. (Patient not taking: Reported on 06/07/2021 ) gabapentin (NEURONTIN) 300 mg capsule Take 1 capsule by mouth twice daily for 90 days. busPIRone (BUSPAR) 7.5 mg tablet Take 1 tablet by mouth twice daily. (Patient not taking: Reported on 06/07/2021 ) buPROPion XL (WELLBUTRIN XL) 150 mg 24 hr tablet Take 1 tablet by mouth once daily. (Patient not taking: Reported on 06/07/2021 ) hydrOXYzine pamoate (VISTARIL) 25 mg capsule Take 1 capsule by mouth three times daily as needed for anxiety. (Patient not taking: Reported on 06/07/2021 ) blood sugar diagnostic (ACCU-CHEK SONIA PLUS TEST STRP) test strip Test blood sugar(s) 1 times daily and as needed. Dx: Type 2 DM - Controlled E11.9 Insulin: No Blood-Glucose Meter (ONETOUCH ULTRA2 METER) monitoring kit 1 Each as needed. One Touch Meter Kit Diagnosis: Type 2 DM - Controlled E11.9 Lancets (ONETOUCH ULTRASOFT LANCETS) lancets Test blood sugar(s) 2 times daily. Dx: Type 2 DM - Controlled E11.9 , Insulin: No Lancets (ACCU-CHEK SOFTCLIX LANCETS) lancets Use as directed. Dx: Type 2 DM - Controlled E11.9 Insulin: No CPAP Initiate Auto PAP @ 8-20 cm of water with humidification. Mask: medium Martinez and Paykel Eson nasal mask without chin strap , filters, tubing, humidifier and lifetime supplies. No current facility-administered medications on file prior to visit. ALLERGY: ALLERGIES Allergen Reactions Metformin watery diarrhea from 500 mg BID of plain metformin Grass Pollen Lisinopril Cough Mri Contrast [Contr* PAIN AND SWELLING IN ARM DAY AFTER MRI Otc Cold Medication* Dizziness, crawling sensation on skin Pollen Requip [Ropinirole] Other: See Comments excessive sweating PAST MEDICAL HISTORY: No chronic skin disease or skin cancer FAMILY HISTORY: No chronic skin disease or skin cancer REVIEW OF SYSTEMS: Patient feels well and denies any recent fevers, chills, or nightsweats. Skin: hidradenitis suppurativa PHYSICAL EXAM: The patient is a pleasant female in no distress. Patient is healthy, well developed, well nourished and in otherwise good health. she is alert and oriented x 3. A skin exam was done of the axilla, inguinal folds, abdomen Erythematous nodules under abdominal pannus, in inguinal folds Axilla clear today with no scarring or nodules Increased terminal hair growth at jawline Yellow firm papules with central dell on left medial cheek x 2 Impression/Assessment/Plan Hidradenitis Suppurativa, Boles Stage II - Discussed etiology and chronic nature of disease and how it can be difficult to treat - Educated patient on how weight loss can improve skin disease - Recommended patient wear loose fitting clothing whenever possible - rec BPO wash once to twice daily to affected areas - minocycline 100 mg bid. Risks and side effects of the medication were discussed with the patient, including sun sensitvity, headache, dizziness, pigmentary changes and drug-induced lupus. - rx topical clindamycin once to twice daily to affected skin - Prescribed spironolactone 50 mg x 7 days and then 100 mg daily until follow up. Discussed SE including teratogenicity and feminization of the male fetus, dizziness/low blood pressure, elevation in potassium levels, breast tenderness and menstrual irregularities, dehydration, and rash. Contraindications to use of medicine include but are not limited to , kidney disease, and breast cancer. Will check potassium prior to starting and 3 months into treatment. - Future treatment options: Retinoids, Biologics, Dapsone, and surgery Hirsutism - Discussed treatment options including shaving, depilatories, waxing, electrolysis, and laser hair removal. - Prescribed spironolactone 50 mg x 7 days and then 100 mg daily until follow up. Discussed SE including teratogenicity and feminization of the male fetus, dizziness/low blood pressure, elevation in potassium levels, breast tenderness and menstrual irregularities, dehydration, and rash. Contraindications to use of medicine include but are not limited to , kidney disease, and breast cancer. Sebaceous hyperplasia - benign nature discussed with patient. No treatment needed or desired. Follow up in 3 months The patient is seen and examined by Dr. Anderson and the following reflects his/her service. Scribed by Alexi Vick CMA I, Pretty Anderson MD, agree with the Chief Complaint, ROS, and Past Histories independently gathered by the clinical support associate, Alexi Vick CMA, and the remaining scribed note accurately describes my personal service to the patient. August 09, 2021 11:17 AM Alexi Anderson MD documented in this encounter [facility] 07-18-2021 Note HNO ID: [id number] Author: Tahira Webster HemoShear Service: ? Author Type: Glaucoma Specialist Type: Progress Notes Filed: 07/18/2021 10:17 AM Note Text: Radiology Service Progress Note PATIENT NAME: Marge Concepcion DATE OF SERVICE: July 18, 2021 TIME: 10:17 AM PATIENT IDENTITY VERIFICATION COMPLETED USING TWO (2) IDENTIFIERS: Name and Date of confirmed by patient verbally. FALL SCREENING: Has the patient had 2 falls in the last year or 1 fall with injury or currently using an Ambulatory Assistive Device (Walker, Cane, Wheelchair, Crutches, etc.)? No PATIENT GENDER DATA: Female. status: : No status: NO. PATIENT RELEVANT IMPLANT DATA REVIEWED: Not Applicable RADIOLOGY DEPARTMENT: Mammography PERIPHERAL IV DATA: Not applicable SIGNED BY: Tahira Webster HemoShear July 18, 2021 10:17 AM [facility] 06-07-2021 Note HNO ID: [id number] Author: Merced Gomez MD Service: ? Author Type: Physician Type: Progress Notes Filed: 06/07/2021 11:50 AM Note Text: Marge is a 51 year old who presents for an annual gynecologic exam with complaints, PMS worsening hirsuitism. Worsening facial hair. Has done laser hair removal in past. Notices mood swings just before start of menses. Worsened chronic pelvic pain over the last few years. Worsened pain is cyclic. Not currently on her medication for depression/anxiety, but has been on medication before in the past. Menses: S/p ablation, no menses Contraception: tubal sterilization HPV vaccine: N/A Last Pap: 11/27/2016 normal HPV: 11/25/2016 negative History of abnormal pap: Yes Last mammogram: today Sexually active: Yes Patient concerns for STD exposure: No. OB History T4 L4 SAB1 IAB0 Ectopic1 Multiple0 Live Births0 College Associate History LMP: 02/06/2020, Ablation Age at Menarche: Age at First : Age at Menopause: College Associate History Comments: Sexual Activity: Yes; Male Contraception: Tubal Ligation PAST MEDICAL HISTORY Diagnosis Date - Abnormal glandular Papanicolaou smear of cervix Abn. Pap smear (cervix) - Anxiety state, unspecified - Prabhakar's esophagus - Bulging of cervical intervertebral disc - Depression - Diabetes (HCC) - Diarrhea irritable bowel vs crohns - Endometriosis 1 lesion noted along left IP and minimal adhesions noted at time of tubal - Esophageal reflux - Fetus or affected by ectopic of mother - Genital herpes - Hypertension - IBS (irritable bowel syndrome) - Insomnia - Obesity (BMI 30-39.9) - MICHELLE on CPAP 11/26/2016 Severe - PMH - PAST MEDICAL HISTORY OF dx 1996 crohn's disease-mild, on some med but was taken off it soon after dx. - PMH - PAST MEDICAL HISTORY OF metabolic syndrome - Polycystic ovaries - Restless leg syndrome - Unspecified , without mention of complication, unspecified 12/12/2006 Miscarriage with DANDC - Unspecified asthma(493.90) albuterol PRN PAST SURGICAL HISTORY Procedure Laterality Date - CHOLECYSTECTOMY 1997 - COLPOSCOPY CERVIX UPPER/ADJACENT VAGINA Colposcopy - DILATION AND CURETTAGE DXAND/THER NONOBSTETRIC 12/12/2006 Dilation AND curettage - FOOT SURGERY HX Right 01/2016 neuroma - HYSTEROSCOPY, DIAGNOSTIC (SEPARATE 04/13/2020 - PAST SURGICAL HISTORY OF 07/26/2005 ruptured tubal pregnency - PAST SURGICAL HISTORY OF 01/2006 FOOT SURGERY - REDUCTION OF LARGE BREAST 11/2004 - RPR UMBILICAL HERNIA < 5 YRS REDUCIBLE Hernia repair, umbilical - S ABLATION ANNE [id number] 04/13/2020 Anne Ablation - SALPINGECTOMY Bilateral 04/13/2020 Laparoscopic B/L salpingectomy at [facility]-Dr. Gomez FAMILY HISTORY Problem Relation Age of Onset - Hypertension Mother - other (PVD) Mother carotid/CEA - Alzheimer's Disease Father - Hypertension Father - Uterine Cancer Sister - Other Sleep Disorder Brother weight loss and GI symptoms improved with PEMF - Stroke Paternal Grandfather - Hypertension Paternal Uncle - other (uterine cancer) Other half sister SOCIAL HISTORY Social History Tobacco Use - Smoking status: Never Smoker - Smokeless tobacco: Never Used Vaping Use - Vaping Use: Never used Substance Use Topics - Alcohol use: No - Drug use: No REVIEW OF SYSTEMS Abdomen: No abdominal pain, nausea, vomiting, diarrhea, or constipation. No bloating, early satiety, indigestion, or increased flatulence. Bladder: No dysuria, gross hematuria, urinary frequency, urinary urgency, or incontinence. Breast: No breast lumps, nipple d/c, overlying skin changes, redness or skin retraction. Allergies and current medication updated:Yes EXAM: BP 130/90 Ht 5' 4 (1.63m) Wt 211 lb 12.8 oz (96.1kg) LMP 02/06/2020 BMI 36.34 kg/(m2). GENERAL: pleasant, female in no apparent distress HEENT: Normocephalic, atraumatic, mucus membranes moist and no lesions NECK: Supple, full range of motion, no adenopathy and thyroid normal DERMATOLOGY: Normal, without lesions, non-icteric and non-hirsute BREAST: soft, non-tender, symmetric, no dominant mass, normal nipple-areolar complex, no lymphadenopathy and no nipple discharge CHEST: Normal inspiratory effort ABDOMEN: soft, non-tender and no masses PELVIC: external genitalia normal, normal Bartholin's glands, urethra, Karlsruhe's glands, no vulvar lesions, no cervical lesions, good vaginal support, physiologic discharge present, normal appearing perineal body and perianal region BIMANUAL: uterus normal size, shape and consistency, no adnexal masses and non-tender RECTOVAGINAL: deferred. NEURO: exam grossly non-focal EXTREMITIES: normal ASSESSMENT/PLAN: 1) Health maintenance: Pap done with HPV. Mammogram ordered. Nutrition, exercise and routine health maintenance exams reviewed. Colonoscopy ordered. Consult to pelvic pain clinic for (more content not included)... [facility] 06-07-2021 Note HNO ID: [id number] Author: Adi Pinzon Service: ? Author Type: Glaucoma Specialist Type: Progress Notes Filed: 06/07/2021 8:34 AM Note Text: Radiology Service Progress Note PATIENT NAME: Marge Concepcion DATE OF SERVICE: June 07, 2021 TIME: 8:17 AM PATIENT IDENTITY VERIFICATION COMPLETED USING TWO (2) IDENTIFIERS: Name and Date of confirmed by patient verbally. FALL SCREENING: Has the patient had 2 falls in the last year or 1 fall with injury or currently using an Ambulatory Assistive Device (Walker, Cane, Wheelchair, Crutches, etc.)? No PATIENT GENDER DATA: Female. status: : No status: NO. PATIENT RELEVANT IMPLANT DATA REVIEWED: Not Applicable RADIOLOGY DEPARTMENT: Mammography PERIPHERAL IV DATA: Not applicable SIGNED BY: Adi Pinzon June 07, 2021 8:17 AM [facility] 06-07-2021 Miscellaneous Notes June 07, 2021 PID: [id number] Marge Concepcion [address] [place] [address] Dear Ms. Concepcion, Your recent breast imaging exam on 06/07/2021 showed a possible finding that requires additional imaging studies for a complete evaluation. Most such findings are probably benign (not cancer). If you have a healthcare provider who ordered/prescribed your screening mammogram: Please call [phone] or [phone]: [phone] to schedule an appointment for your additional imaging (if you have not already done so). If you DO NOT have a healthcare provider (ie you did not have an order/prescription for your screening mammogram): Please call to schedule an appointment for your additional imaging (if you have not already done so). You must have an order/prescription from your physician when calling to schedule your appointment. If your order/prescription is not electronic, you must bring the hard copy with you on the day of your exam to avoid delays. Your imaging studies and reports are kept on file at [facility] as part of your permanent medical record, and are available for your continuing care. Thank you for allowing us to help in meeting your health care needs. Sincerely, Dr. Colindres Interpreting Radiologist [facility] (Additional imaging) documented in this encounter [facility] 06-07-2021 History of Presen t illness Narrative Marge is a 51 year old who presents for an annual gynecologic exam with complaints, PMS worsening hirsuitism. Worsening facial hair. Has done laser hair removal in past. Notices mood swings just before start of menses. Worsened chronic pelvic pain over the last few years. Worsened pain is cyclic. Not currently on her medication for depression/anxiety, but has been on medication before in the past. Menses: S/p ablation, no menses Contraception: tubal sterilization HPV vaccine: N/A Last Pap: 11/27/2016 normal HPV: 11/25/2016 negative History of abnormal pap: Yes Last mammogram: today Sexually active: Yes Patient concerns for STD exposure: No. OB History T4 L4 SAB1 IAB0 Ectopic1 Multiple0 Live Births0 College Associate History LMP: 02/06/2020, Ablation Age at Menarche: Age at First : Age at Menopause: College Associate History Comments: Sexual Activity: Yes; Male Contraception: Tubal Ligation PAST MEDICAL HISTORY Diagnosis Date Abnormal glandular Papanicolaou smear of cervix Abn. Pap smear (cervix) Anxiety state, unspecified Prabhakar's esophagus Bulging of cervical intervertebral disc Depression Diabetes (HCC) Diarrhea irritable bowel vs crohns Endometriosis 1 lesion noted along left IP and minimal adhesions noted at time of tubal Esophageal reflux Fetus or affected by ectopic of mother Genital herpes Hypertension IBS (irritable bowel syndrome) Insomnia Obesity (BMI 30-39.9) MICHELLE on CPAP 11/26/2016 Severe PMH - PAST MEDICAL HISTORY OF dx 1996 crohn's disease-mild, on some med but was taken off it soon after dx. PMH - PAST MEDICAL HISTORY OF metabolic syndrome Polycystic ovaries Restless leg syndrome Unspecified , without mention of complication, unspecified 12/12/2006 Miscarriage with D&C Unspecified asthma(493.90) albuterol PRN PAST SURGICAL HISTORY Procedure Laterality Date CHOLECYSTECTOMY 1997 COLPOSCOPY CERVIX UPPER/ADJACENT VAGINA Colposcopy DILATION & CURETTAGE DX&/THER NONOBSTETRIC 12/12/2006 Dilation & curettage FOOT SURGERY HX Right 01/2016 neuroma HYSTEROSCOPY, DIAGNOSTIC (SEPARATE 04/13/2020 PAST SURGICAL HISTORY OF 07/26/2005 ruptured tubal pregnency PAST SURGICAL HISTORY OF 01/2006 FOOT SURGERY REDUCTION OF LARGE BREAST 11/2004 RPR UMBILICAL HERNIA < 5 YRS REDUCIBLE Hernia repair, umbilical S ABLATION ANNE [id number] 04/13/2020 Anne Ablation SALPINGECTOMY Bilateral 04/13/2020 Laparoscopic B/L salpingectomy at [facility]-Dr. Gomez FAMILY HISTORY Problem Relation Age of Onset Hypertension Mother other (PVD) Mother carotid/CEA Alzheimer's Disease Father Hypertension Father Uterine Cancer Sister Other Sleep Disorder Brother weight loss and GI symptoms improved with PEMF Stroke Paternal Grandfather Hypertension Paternal Uncle other (uterine cancer) Other half sister SOCIAL HISTORY Social History Tobacco Use Smoking status: Never Smoker Smokeless tobacco: Never Used Vaping Use Vaping Use: Never used Substance Use Topics Alcohol use: No Drug use: No REVIEW OF SYSTEMS Abdomen: No abdominal pain, nausea, vomiting, diarrhea, or constipation. No bloating, early satiety, indigestion, or increased flatulence. Bladder: No dysuria, gross hematuria, urinary frequency, urinary urgency, or incontinence. Breast: No breast lumps, nipple d/c, overlying skin changes, redness or skin retraction. Allergies and current medication updated:Yes EXAM: BP 130/90 Ht 5' 4 (1.63m) Wt 211 lb 12.8 oz (96.1kg) LMP 02/06/2020 BMI 36.34 kg/(m^2). GENERAL: pleasant, female in no apparent distress HEENT: Normocephalic, atraumatic, mucus membranes moist and no lesions NECK: Supple, full range of motion, no adenopathy and thyroid normal DERMATOLOGY: Normal, without lesions, non-icteric and non-hirsute BREAST: soft, non-tender, symmetric, no dominant mass, normal nipple-areolar complex, no lymphadenopathy and no nipple discharge CHEST: Normal inspiratory effort ABDOMEN: soft, non-tender and no masses PELVIC: external genitalia normal, normal Bartholin's glands, urethra, Karlsruhe's glands, no vulvar lesions, no cervical lesions, good vaginal support, physiologic discharge present, normal appearing perineal body and perianal region BIMANUAL: uterus normal size, shape and consistency, no adnexal masses and non-tender RECTOVAGINAL: deferred. NEURO: exam grossly non-focal EXTREMITIES: normal ASSESSMENT/PLAN: 1) Health maintenance: Pap done with HPV. Mammogram ordered. Nutrition, exercise and routine health maintenance exams reviewed. Colonoscopy ordered. Consult to pelvic pain clinic for chronic pelvic pain, adhesions and endometriosis noted at time of surgery. Discussed treatment options for hirsutism. Referral placed to dermatology. Unable to start OCP's given medical history. Discussed treatment options for PMS. Unable to use OCP. Would need to coordinate care with and PCP if she desires SSRI. 2) Contraception: tubal sterilization. Contraceptive options reviewed and information provided. 3) STD screening: Declined STD check. 4) Follow up one year or sooner as needed Merced Gomez DO documented in this encounter [facility] 06-07-2021 History of Presen t illness Narrative Radiology Service Progress Note PATIENT NAME: Marge Concepcion DATE OF SERVICE: June 07, 2021 TIME: 8:17 AM PATIENT IDENTITY VERIFICATION COMPLETED USING TWO (2) IDENTIFIERS: Name and Date of confirmed by patient verbally. FALL SCREENING: Has the patient had 2 falls in the last year or 1 fall with injury or currently using an Ambulatory Assistive Device (Walker, Cane, Wheelchair, Crutches, etc.)? No PATIENT GENDER DATA: Female. status: : No status: NO. PATIENT RELEVANT IMPLANT DATA REVIEWED: Not Applicable RADIOLOGY DEPARTMENT: Mammography PERIPHERAL IV DATA: Not applicable SIGNED BY: Adi Pinzon June 07, 2021 8:17 AM documented in this encounter [facility] 05-17-2021 Miscellaneous Notes Patient phones requesting refills as follows: Pending Prescriptions Disp Refills NADOLOL 40 MG TABLET 90 tablet 1 Sig: Take 1 tablet by mouth once daily. LUNA: No SHI-09/26/20 Labs-09/26/20 NOV-none med filled 08/09/20 Please review and advise. Odette Sabillon LPN documented in this encounter [facility] 05-17-2021 Miscellaneous Notes Patient phones requesting refills as follows: Pending Prescriptions Disp Refills ALBUTEROL SULFATE HFA 90 MCG/ACTUATION AEROSOL INHALER 1 Each 2 Sig: Inhale 2 Puffs as instructed every 4 hours as needed for wheezing/shortness of breath. LUNA: No SHI-09/26/20 Labs-09/26/20 NOV-none med filled 08/09/20 Please review and advise. Odette Sabillon LPN documented in this encounter [facility] 10-18-2020 Note HNO ID: [id number] Author: Lino Lane Service: ? Author Type: Glaucoma Specialist Type: Progress Notes Filed: 10/18/2020 11:29 AM Note Text: Radiology Service Progress Note PATIENT NAME: Marge Concepcion DATE OF SERVICE: October 18, 2020 TIME: 11:29 AM PATIENT IDENTITY VERIFICATION COMPLETED USING TWO (2) IDENTIFIERS: Name and Date of confirmed by patient verbally. FALL SCREENING: Has the patient had 2 falls in the last year or 1 fall with injury or currently using an Ambulatory Assistive Device (Walker, Cane, Wheelchair, Crutches, etc.)? No PATIENT GENDER DATA: Female. status: : No status: NO. PATIENT RELEVANT IMPLANT DATA REVIEWED: Not Applicable RADIOLOGY DEPARTMENT: Mammography PERIPHERAL IV DATA: Not applicable SIGNED BY: Lino Lane October 18, 2020 11:29 AM [facility] 09-26-2020 Note HNO ID: [id number] Author: Mack Nolasco MD Service: ? Author Type: Physician Type: Progress Notes Filed: 09/26/2020 5:00 PM Note Text: Chief Complaint Patient presents with: 6 Month Exam HPI Marge Concepcion is a 50 year old female who presents here today for Above Complaints. DIABETES MELLITUS: Ms. Concepcion was last seen 6 months ago. Since our last visit she denies excessive thirst or increased frequency of urination, numbness, tingling or pain in extremities, new or unusual visual symptoms and low sugar/hypoglycemic reactions. Follows a diabetic diet generally not very much. She is compliant with medication(s) and is tolerating med(s) without any side effects. She reports checking her glucose on a infrequent to not at all basis. Patient's last HgA1C was Hemoglobin A1C (%) Date Value 03/31/2020 6.8 10/04/2019 6.7 ) Last Ophthalmology exam was within the past 12 months Last Podiatry exam was within the past 12 months MICHELLE: Given the order for supplies at last OV, but has not been using her machine as directed. GERD: controlled on protonix. Gets bad heartburn if she misses dosages. Anxiety/depression: compliant with Cymbalta, Wellbutrin, and bupropion. Has been feeling more down since her mother 6 months ago. Getting divorce. quit paying on her house which has been foreclosed on. Child tried to commit suicide. Admits to Increased anger/agitation, social anxiety, panic symptoms. Denies SI/HI. Not following up with counseling. Patient needs to schedule follow up with [employer] after ablation. States that she has been getting hot flashes prior to periods and still has some spotting. Notes lesions in her axilla and groin that become red and inflamed before draining pus and resolving. Going on for months. No cellulitis symptoms today. Past medical history, appointments, medications, allergies reviewed. Previous Medical History PAST MEDICAL HISTORY Diagnosis Date - Abnormal glandular Papanicolaou smear of cervix Abn. Pap smear (cervix) - Anxiety state, unspecified - Prabhakar's esophagus - Bulging of cervical intervertebral disc - Depression - Diabetes (HCC) - Diarrhea irritable bowel vs crohns - Endometriosis 1 lesion noted along left IP and minimal adhesions noted at time of tubal - Esophageal reflux - Fetus or affected by ectopic of mother - Genital herpes - Hypertension - IBS (irritable bowel syndrome) - Insomnia - Obesity (BMI 30-39.9) - MICHELLE on CPAP 11/26/2016 Severe - PMH - PAST MEDICAL HISTORY OF dx 1996 crohn's disease-mild, on some med but was taken off it soon after dx. - PMH - PAST MEDICAL HISTORY OF metabolic syndrome - Polycystic ovaries - Restless leg syndrome - Unspecified , without mention of complication, unspecified 12/12/2006 Miscarriage with DANDC - Unspecified asthma(493.90) albuterol PRN Previous Surgical History PAST SURGICAL HISTORY Procedure Laterality Date - COLPOSCOPY (VAGINOSCOPY) Colposcopy - DANDC, DIAG AND/OR THERAPEUTIC 12/12/2006 Dilation AND curettage - FOOT SURGERY HX Right 01/2016 neuroma - HYSTEROSCOPY, DIAGNOSTIC (SEPARATE 04/13/2020 - PAST SURGICAL HISTORY OF 07/26/2005 ruptured tubal pregnency - PAST SURGICAL HISTORY OF 01/2006 FOOT SURGERY - REDUCTION OF LARGE BREAST 11/2004 - REMOVAL GALLBLADDER 1997 - REPAIR UMBILICAL SAHIL,<5Y/O,REDUC Hernia repair, umbilical - S ABLATION ANNE [id number] 04/13/2020 Anne Ablation - SALPINGECTOMY Bilateral 04/13/2020 Laparoscopic B/L salpingectomy at [facility]-Dr. Gomez Family History FAMILY HISTORY Problem Relation Age of Onset - Hypertension Mother - other (PVD) Mother carotid/CEA - Alzheimer's Disease Father - Hypertension Father - Stroke Paternal Grandfather - other (uterine cancer) Other half sister - Hypertension Paternal Uncle Patient Allergies ALLERGIES Allergen Reactions - Metformin watery diarrhea from 500 mg BID of plain metformin - Grass Pollen - Lisinopril Cough - Mri Contrast [Contr* PAIN AND SWELLING IN ARM DAY AFTER MRI - Otc Cold Medication* Dizziness, crawling sensation on skin - Pollen - Requip [Ropinirole] Other: See Comments excessive sweating Current Medications Current Outpatient Medications on File Prior to Visit Medication Sig - atorvastatin (LIPITOR) 10 mg tablet Take 1 tablet by mouth daily at bedtime. For cholesterol. - losartan (COZAAR) 100 mg tablet Take 1 tablet by mouth once daily. - gabapentin (NEURONTIN) 300 mg capsule Take 1 capsule by mouth twice daily for 90 days. - traZODone (DESYREL) 50 mg tablet Take 1 tablet by mouth daily at bedtime. - nadolol (CORGARD) 40 mg tablet Take 1 tablet by mouth once daily. - pantoprazole DR (PROTONIX) 40 mg tablet Take 1 tablet by mouth once daily. - glimepiride (AMARYL) 4 mg tablet Take 1 tablet by mouth twice daily with meals. - metFORMIN ER (GLUCOPHAGE XR (more content not included)... [facility] documented as of this encounter (statuses as of 05/17/2021) [facility] History of Past illness Narrative* Problem Noted Date Resolved Date HTN, goal below 140/90 11/21/2015 8 Hyperglycemia 02/13/2011 03/18/2017 Diarrhea 03/18/2017 Overview: immodium prn Restless leg syndrome 06/20/2017 documented as of this encounter (statuses as of 05/17/2021) [facility] History of Past illness Narrative* Problem Noted Date Resolved Date HTN, goal below 140/90 11/21/2015 8 Hyperglycemia 02/13/2011 03/18/2017 Diarrhea 03/18/2017 Overview: immodium prn Restless leg syndrome 06/20/2017 documented as of this encounter (statuses as of 06/07/2021) [facility] History of Past illness Narrative* Problem Noted Date Resolved Date HTN, goal below 140/90 11/21/2015 8 Hyperglycemia 02/13/2011 03/18/2017 Diarrhea 03/18/2017 Overview: immodium prn Restless leg syndrome 06/20/2017 documented as of this encounter (statuses as of 06/08/2021) [facility] History of Past illness Narrative* Problem Noted Date Resolved Date HTN, goal below 140/90 11/21/2015 8 Hyperglycemia 02/13/2011 03/18/2017 Diarrhea 03/18/2017 Overview: immodium prn Restless leg syndrome 06/20/2017 documented as of this encounter (statuses as of 06/09/2021) [address]11-2016 History of Past illness Narrative* Problem Noted Date Resolved Date HTN, goal below 140/90 11/21/2015 8 Hyperglycemia 02/13/2011 03/18/2017 Diarrhea 03/18/2017 Overview: immodium prn Restless leg syndrome 06/20/2017 documented as of this encounter (statuses as of 06/13/2021) [address]11-2016 History of Past illness Narrative* Problem Noted Date Resolved Date HTN, goal below 140/90 11/21/2015 8 Hyperglycemia 02/13/2011 03/18/2017 Diarrhea 03/18/2017 Overview: immodium prn Restless leg syndrome 06/20/2017 documented as of this encounter (statuses as of 07/12/2021) [facility] History of Past illness Narrative* Problem Noted Date Resolved Date HTN, goal below 140/90 11/21/2015 8 Hyperglycemia 02/13/2011 03/18/2017 Diarrhea 03/18/2017 Overview: immodium prn Restless leg syndrome 06/20/2017 documented as of this encounter (statuses as of 08/09/2021) [facility] History of Past illness Narrative* Problem Noted Date Resolved Date HTN, goal below 140/90 11/21/2015 8 Hyperglycemia 02/13/2011 03/18/2017 Diarrhea 03/18/2017 Overview: immodium prn Restless leg syndrome 06/20/2017 documented as of this encounter (statuses as of 08/10/2021) [facility] History of Past illness Narrative* Problem Noted Date Resolved Date HTN, goal below 140/90 11/21/2015 8 Hyperglycemia 02/13/2011 03/18/2017 Diarrhea 03/18/2017 Overview: immodium prn Restless leg syndrome 06/20/2017 documented as of this encounter (statuses as of 08/22/2021) [facility] History of Past illness Narrative* Problem Noted Date Resolved Date HTN, goal below 140/90 11/21/2015 8 Hyperglycemia 02/13/2011 03/18/2017 Diarrhea 03/18/2017 Overview: immodium prn Restless leg syndrome 06/20/2017 documented as of this encounter (statuses as of 11/05/2021) [facility] History of Past illness Narrative* Problem Noted Date Diagnosed Date Resolved Date HTN, goal below 140/90 11/21/201503/18 Hyperglycemia 02/13/2011 03/18/2017 Diarrhea 03/18/2017 Overview: immodium prn Restless leg syndrome 2017 documented as of this encounter (statuses as of 01/31/2023) [facility] Mild intermittent asthma with acute exacerbation Unspecified asthma, with exacerbation [facility] Screening for cervical cancer- Primary Screening for malignant neoplasm of the cervix Encounter for gynecological examination (general) (routine) without abnormal findings Encounter for screening mammogram for breast cancer Special screening examination for human papillomavirus (HPV) Colon cancer screening Special screening for malignant neoplasms, colon Endometriosis Endometriosis, site unspecified Chronic pelvic pain in female Unspecified symptom associated with female genital organs documented in this encounter [facility] note* Diagnosis Encounter for screening mammogram for malignant neoplasm of breast Other screening mammogram documented in this encounter [facility] note* Diagnosis Hidradenitis suppurativa- Primary Hidradenitis Sebaceous hyperplasia Other specified disease of sebaceous glands Hirsutism documented in this encounter [facility] note* Diagnosis Hidradenitis suppurativa- Primary Hidradenitis documented in this encounter [facility] note* Diagnosis Hidradenitis suppurativa Hidradenitis documented in this encounter [facility] for referral (narrative)* Outpatient Procedure (Routine) - Pending Review Specialty Diagnoses / Procedures Referred By Sunny tubbs Referred To Contact [facility] Diagnoses Colon cancer screening Procedures COLONOSCOPY SCREENING COLONOSCOPY FLX DX W/COLLJ SPEC WHEN PFRMD Merced Gomez MD [address] [place] [address] [facility] [address] [place] [address] Referral ID Status Reason Start Date Expiration Date Visits Requested Visits Authorized [id number] Pending Review Auto-Generat ed Referral 06/07/2021 06/07/2022 1 1 * Consult, Test, Treat (Routine) - Authorized Specialty Diagnoses / Procedures Referred By Sunny tubbs Referred To Contact Diagnoses Endometriosis Chronic pelvic pain in female Procedures CONSULT TO CONTAINER SHOP WELDER PELVIC PAIN OFFICE/OUTPATIENT NEW HIGH MDM 60-74 MINUTES Merced Gomez MD [address] [place] [address] Referral ID Status Reason Start Date Expiration Date Visits Requested Visits Authorized [id number] Authorized PCP Requested Referral Auto-Generate d Referral 06/07/2021 06/07/2022 1 1 * Diagnostic Procedure Only (Routine) - Pending Review Specialty Diagnoses / Procedures Referred By Sunny tubbs Referred To Contact [facility] Diagnoses Encounter for screening mammogram for breast cancer Procedures BETHANIE SCREENING SCREENING MAMMOGRAPHY BI 2-VIEW BREAST INC CAD Merced Gomez MD [address] [place] [address] [facility] [address] [place] [address] Referral ID Status Reason Start Date Expiration Date Visits Requested Visits Authorized [id number] Pending Review Auto-Generat ed Referral 06/07/2021 07/07/2022 1 1 T [facility] for referral (narrative)* Diagnostic Procedure Only (Routine) - Closed Specialty Diagnoses / Procedures Referred By Sunny t Referred To Contact [facility] Diagnoses Encounter for screening mammogram for malignant neoplasm of breast Procedures BETHANIE SCREENING SCREENING MAMMOGRAPHY BI 2-VIEW BREAST INC Merced Sloan MD [address] [place] [address] [place] [address] Referral ID Status Reason Start Date Expiration Date V isits Requested Visits Authorized [id number] Closed Auto-Generate d Referral 06/01/2021 07/01/2022 1 1 [facility] for visit Narrative* Diagnostic Procedure Only (Routine) - Closed Specialty Diagnoses / Procedures Referred By Sunny tubbs Referred To Contact [facility] Diagnoses Encounter for screening mammogram for malignant neoplasm of breast Procedures BETHANIE SCREENING SCREENING MAMMOGRAPHY BI 2-VIEW BREAST INC Merced Sloan MD [address] [place] [address] [facility] [address] [place] [address] Referral ID Status Reason Start Date Expiration Date V isits Requested Visits Authorized [id number] Closed Auto-Generate d Referral 06/01/2021 07/01/2022 1 1 [facility] Summary Purpose Family History No Family History Records FoundNo Family History Records FoundNo Family History Records Found Advance Directives Documents on File Type Date Recorded 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 Advance Directive(s) Documents on File Type Date Recorded 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 Advance Directive(s) Additional Source Comments INFORMATION SOURCE (unrecogn ized section and content) DATE CREATED AUTHOR AUTHOR'S ORGANIZ ATION 08/05/2017 [facility] DATE CREATED AUTHOR AUTHOR'S ORGANIZ ATION 08/29/2021 [facility] Source Comments (unrecognize d section and content) In the event this informatio n is protected by the Federal Confidentiality of Alcohol and Drug Abuse Patient Records regulations: The Federal rules restrict any use of the information to criminally investigate or prosecute any alcohol or drug abuse patient.[facility] event this information is protected by the Federal Confidentiality of Alcohol and Drug Abuse Patient Records regulations: The Federal rules restrict any use of the information to criminally investigate or prosecute any alcohol or drug abuse patient.[facility] the event this information is protected by the Federal Confidentiality of Alcohol and Drug Abuse Patient Records regulations: The Federal rules restrict any use of the information to criminally investigate or prosecute any alcohol or drug abuse patient.[facility] the event this information is protected by the Federal Confidentiality of Alcohol and Drug Abuse Patient Records regulations: The Federal rules restrict any use of the information to criminally investigate or prosecute any alcohol or drug abuse patient.[facility] event this information is protected by the Federal Confidentiality of Alcohol and Drug Abuse Patient Records regulations: The Federal rules restrict any use of the information to criminally investigate or prosecute any alcohol or drug abuse patient.[facility] the event this information is protected by the Federal Confidentiality of Alcohol and Drug Abuse Patient Records regulations: The Federal rules restrict any use of the information to criminally investigate or prosecute any alcohol or drug abuse patient.[facility] the event this information is protected by the Federal Confidentiality of Alcohol and Drug Abuse Patient Records regulations: The Federal rules restrict any use of the information to criminally investigate or prosecute any alcohol or drug abuse patient.[facility] the event this information is protected by the Federal Confidentiality of Alcohol and Drug Abuse Patient Records regulations: The Federal rules restrict any use of the information to criminally investigate or prosecute any alcohol or drug abuse patient.[facility] the event this information is protected by the Federal Confidentiality of Alcohol and Drug Abuse Patient Records regulations: The Federal rules restrict any use of the information to criminally investigate or prosecute any alcohol or drug abuse patient.[facility] the event this information is protected by the Federal Confidentiality of Alcohol and Drug Abuse Patient Records regulations: The Federal rules restrict any use of the information to criminally investigate or prosecute any alcohol or drug abuse patient.[facility] the event this information is protected by the Federal Confidentiality of Alcohol and Drug Abuse Patient Records regulations: The Federal rules restrict any use of the information to criminally investigate or prosecute any alcohol or drug abuse patient.[facility] the event this information is protected by the Federal Confidentiality of Alcohol and Drug Abuse Patient Records regulations: The Federal rules restrict any use of the information to criminally investigate or prosecute any alcohol or drug abuse patient.[facility] Reason for Visit (unrecogniz ed section and content) Reason Comments Well Woman Reason Comments Mammogram Result Call Back Reason Comments Opened In Error Reason Comments Cyst groin and axillae pa inful patient states she has been dealing with these symptoms for a long time but has decided to be treated Reason Comments Scheduling Reason Comments Appointment PCP requesting OV du e to past due. 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 This clinical summary was aggregated from multiple sources. Caution should be exercised in using it in the provision of clinical care. This summary normalizes information from multiple sources, and as a consequence, information in this document may materially change the coding, format and clinical context of patient data. In addition, data may be omitted in some cases. CLINICAL DECISIONS SHOULD BE BASED ON THE PRIMARY CLINICAL RECORDS. [facility] provides no warranty or guarantee of the accuracy or completeness of information in this document.
[2023-04-06] MEDS: predniSONE 20 MG Tablet 40 MG PO (12:38)
[2023-04-06 12:40] VITALS: BP 138/75; PULSE 82; RESP 16; TEMP 36.3; O2SAT 98
== END 2023-04-06 12:42 | disposition home or self-care (01) ==
PROVIDERS: Emergency Provider Emergency Medicine; PCP Internal Medicine; Visit Provider Emergency Medicine
DX: J10.1 Influenza due to other identified influenza virus with other respiratory manifestations (principal); E11.9 Type 2 diabetes mellitus without complications; R91.1 Solitary pulmonary nodule; R06.02 Shortness of breath; E78.5 Hyperlipidemia, unspecified; I10 Essential (primary) hypertension; Z79.82 Long term (current) use of aspirin; F41.8 Other specified anxiety disorders; Z79.84 Long term (current) use of oral hypoglycemic drugs; Z79.899 Other long term (current) drug therapy; K21.9 Gastro-esophageal reflux disease without esophagitis; Z90.49 Acquired absence of other specified parts of digestive tract
CPT/HCPCS: 71045; 87631; 99282

== ENCOUNTER → 2023-05-07 | Outpatient (CLI) | payer OTHER, MEDICAID, SELFPAY ==
[2023-05-07 12:12] LABS: Absolute Lymphocyte Count 2.88 X10^3/uL (0.83-4.51); Absolute Neutrophil Count 5.6 X10^3/uL (2.0-7.7); Basophil# 0.07 X10^3/uL; Basophil% 0.7 % (0-1); Eosinophil# 0.16 X10^3/uL; Eosinophils% 1.7 % (0-5); Hematocrit 42.2 % (37-47); Hemoglobin 14.2 g/dL (12.0-15.0); Lymphocyte # 2.88 X10^3/ul (0.83-4.51); Lymphocyte % 30.1 % (19-41); Mean Corp Hgb Conc 33.6 g/dL (32-36); Mean Corpuscular Hgb 30.3 pg (27.0-32.0); Mean Corpuscular Volume 90.2 fL (81-99); Mean Platelet Vol. 10.7 fl (6.2-12.0); Monocyte# 0.78 X10^3/uL; Monocyte% 8.1 % (0-10); NRBC Flagged by Analyzer 0 % (0-5); Neutrophil # 5.61 X10^3/uL (2.7-7.7); Neutrophil % 58.6 % (47-70); Platelet Count 240 K/mm3 (150-450); RBC Distribution Width CV 12.3 % (11.6-14.6); RBC Distribution Width SD 40.4 fl (35.1-43.9); Red Blood Count 4.68 M/mm3 (4.2-5.4); White Blood Count 9.6 K/mm3 (4.4-11.0)
[2023-05-07 12:51] LABS: Microalbumin,Random Urine 6.7 mg/L (NO RANGE EST.); Microalbumin:Creatinine Ratio 7.3 mg/g CRE (<30 mg/g CRE)
[2023-05-07 12:56] LABS: AST(SGOT) 12 U/L (15-37); Alanine Aminotransfer ALT/SGPT 25 U/L (13-56); Albumin, Serum 3.5 g/dL (3.2-5.0); Alkaline Phosphatase 53 U/L (45-117); Anion Gap 6 (5-15); BUN 22 mg/dL (7-18); BUN/Creat Ratio 29.5 RATIO (10-20); Calcium,Total 9.1 mg/dL (8.5-10.1); Chloride 104 mmol/L (98-107); Cholesterol 154 mg/dL (200); Creatinine, Serum 0.74 mg/dL (0.55-1.02); EST Glomerular Filtration Rate 87 mL/min (>60); Est Glom Filt Rate - Afr Amer 105 mL/min (>60); Globulin 3.6 g/dL (2.2-4.2); Glucose 164 mg/dL (74-106); High Density Lipoprotein 48 mg/dL; Potassium 4.3 mmol/L (3.5-5.1); Protein, Total 7.1 g/dL (6.4-8.2); Sodium Level 138 mmol/L (136-145); Triglycerides 254 mg/dL; Very Low Density Lipoprotein 51 mg/dL (5-40)
== END | disposition home or self-care (01) ==
LOC: BIMLAB 10:23
PROVIDERS: PCP Internal Medicine; Referring Provider Internal Medicine; Visit Provider Internal Medicine
DX: I10 Essential (primary) hypertension (principal); E11.9 Type 2 diabetes mellitus without complications
CPT/HCPCS: 36415; 80053; 80061; 82043; 82570; 85025

== ENCOUNTER → 2023-05-15 | Outpatient (CLI) | payer OTHER, SELFPAY ==
--- NOTE | 2023-05-15 06:34 | CT_ITS ---
STUDY: CT CHEST WITH CONTRAST REASON FOR EXAM: Female, 53 years old. New lung nodule RADIATION DOSAGE (If Supplied By Facility): CTDIvol = ( 25.21 ) mGy, DLP = ( 618.01 ) mGycm TECHNIQUE: Transaxial imaging was performed following intravenous administration of IV 100mL Isovue-370. Multiplanar coronal and sagittal images were reformatted. Individualized dose optimization techniques were used for this CT. COMPARISON: Comparison is made with prior chest radiograph April 06, 2023. FINDINGS: CHEST Minimal increased linear markings in the peripheral lateral aspect of the posterior aspect of the right middle lobe suggestive of scarring. No abnormal pulmonary nodule is seen. The density seen on the chest radiograph most likely represents focal right pericardial fat. There is no demonstrated pleural abnormality. Normal heart and pericardium. Normal mediastinum. Normal hilar regions. Normal unenhanced pulmonary arteries. Normal aorta arch and descending thoracic aorta. Normal osseous structures. Diffuse fatty infiltration of the liver. CT/Chest WITH Contrast IMPRESSION: Minimal scarring in the posterolateral aspect of the right middle lobe. Fatty infiltration of the liver. Electronically Signed: Skyler Roland MD at 11:10 EDT ,
== END | disposition home or self-care (01) ==
PROVIDERS: PCP Internal Medicine; Referring Provider Internal Medicine; Visit Provider Internal Medicine
DX: R91.1 Solitary pulmonary nodule (principal)
CPT/HCPCS: 71260; Q9967

== ENCOUNTER → 2023-10-08 | Outpatient (CLI) | payer OTHER, SELFPAY ==
[2023-10-08 15:23] LABS: Absolute Lymphocyte Count 2.17 X10^3/uL (0.83-4.51); Absolute Neutrophil Count 6.6 X10^3/uL (2.0-7.7); Basophil# 0.08 X10^3/uL; Basophil% 0.8 % (0-1); Eosinophil# 0.21 X10^3/uL; Eosinophils% 2.1 % (0-5); Hematocrit 42.8 % (37-47); Hemoglobin 14.1 g/dL (12.0-15.0); Lymphocyte # 2.17 X10^3/ul (0.83-4.51); Lymphocyte % 21.4 % (19-41); Mean Corp Hgb Conc 32.9 g/dL (32-36); Mean Corpuscular Hgb 28.5 pg (27.0-32.0); Mean Corpuscular Volume 86.6 fL (81-99); Mean Platelet Vol. 11.2 fl (6.2-12.0); Monocyte% 9.9 % (0-10); NRBC Flagged by Analyzer 0 % (0-5); Neutrophil # 6.55 X10^3/uL (2.7-7.7); Neutrophil % 64.6 % (47-70); Platelet Count 255 K/mm3 (150-450); RBC Distribution Width CV 12.5 % (11.6-14.6); RBC Distribution Width SD 39.1 fl (35.1-43.9); Red Blood Count 4.94 M/mm3 (4.2-5.4); White Blood Count 10.1 K/mm3 (4.4-11.0)
[2023-10-08 15:49] LABS: AST(SGOT) 28 U/L (15-37); Alanine Aminotransfer ALT/SGPT 30 U/L (13-56); Albumin, Serum 3.6 g/dL (3.2-5.0); Alkaline Phosphatase 53 U/L (45-117); Anion Gap 7 (5-15); BUN 19 mg/dL (7-18); Calcium,Total 8.9 mg/dL (8.5-10.1); Chloride 105 mmol/L (98-107); Cholesterol 170 mg/dL (200); EST Glomerular Filtration Rate 70 mL/min (>60); Est Glom Filt Rate - Afr Amer 84 mL/min (>60); Globulin 3.7 g/dL (2.2-4.2); Glucose 237 mg/dL (74-106); High Density Lipoprotein 43 mg/dL; Potassium 4.1 mmol/L (3.5-5.1); Protein, Total 7.3 g/dL (6.4-8.2); Sodium Level 136 mmol/L (136-145); Triglycerides 193 mg/dL; Very Low Density Lipoprotein 39 mg/dL (5-40)
[2023-10-08 16:15] LABS: Hemoglobin A1c 6.3 % (3.8-5.6)
== END | disposition home or self-care (01) ==
LOC: BIMLAB 11:57
PROVIDERS: PCP Internal Medicine; Referring Provider Physician Assistant; Visit Provider Physician Assistant
DX: E11.9 Type 2 diabetes mellitus without complications (principal); E78.5 Hyperlipidemia, unspecified
CPT/HCPCS: 36415; 80053; 80061; 83036; 85025

== ENCOUNTER 2024-04-24 19:29 | Emergency (ER) | payer OTHER, SELFPAY ==
[2024-04-24 19:29] VITALS: BP 124/66; PULSE 71; RESP 20; TEMP 36.6; O2SAT 91; BMI 35.9
[2024-04-24 19:32] VITALS: BP 124/66; PULSE 71; RESP 20; TEMP 36.6; O2SAT 91
--- NOTE | 2024-04-24 19:43 | EX.ED.DYSGE1 ---
HPI <MANOJ Weir - Last Filed: 04/24/24 20:26> History of Present Illness Chief Complaint: General Illness Narrative Narrative: 54-year-old female with past medical history of HTN, DM2, asthma states she has had cold and productive cough for 8 to 9 days. She states she drives Muslim and multiple people were sick. She felt better yesterday but today the cough worsened. Her asthma flares whenever she gets a cold and she has been using her albuterol inhaler 1 to 2 puffs every 4 hours. She does not use any other inhalers or nebulizer. She does not smoke. [facility] <MANOJ Weir - Last Filed: 04/24/24 20:26> [facility] Medical History Restless leg syndrome Sleep apnea IBS (irritable bowel syndrome) History of gallstones Endometriosis Neuropathy Polycystic ovaries Anxiety and depression Seasonal allergies Carpal tunnel syndrome Heel spur GERD (gastroesophageal reflux disease) Hyperlipemia Hypertension Diabetes type 2, controlled Home Medications ?Medication ?Instructions ?Recorded ?Last Taken ?Type aspirin 81 mg tablet,delayed 81 mg PO DAILY 04/06/20 Unknown History release ibuprofen 600 mg tablet 600 mg PO Q6H PRN PRN Pain Score 04/13/20 Unknown Rx 6-10 #30 tabs blood pressure monitor #1 ea 08/16/21 Unknown Rx buspirone 10 mg tablet 10 mg PO TID #270 tabs 07/30/22 Unknown Rx trazodone 50 mg tablet 50 mg PO QHS PRN insomnia #90 tabs 01/20/23 Unknown Rx valacyclovir 500 mg tablet 500 mg PO BID #6 tabs 05/07/23 Unknown Rx (Valtrex) losartan 100 mg tablet 100 mg PO DAILY #30 tabs 07/30/23 Unknown Rx gabapentin 100 mg capsule 100 mg PO QHS #90 caps 10/15/23 Unknown Rx escitalopram oxalate 5 mg tablet 5 mg PO DAILY #30 tabs 02/11/24 Unknown Rx (Lexapro) pantoprazole 40 mg tablet,delayed 40 mg PO DAILY #90 tabs 02/23/24 Unknown Rx release nadolol 40 mg tablet See Rx Instructions .Route 03/01/24 Unknown Rx .COMPLEX #30 tabs spironolactone 50 mg tablet 50 mg PO BID #60 tabs 03/01/24 Unknown Rx atorvastatin 10 mg tablet 10 mg PO QHS #30 tabs 03/02/24 Unknown Rx bupropion HCl 100 mg tablet,12 hr 100 mg PO BID #60 ea 03/02/24 Unknown Rx sustained-release (Wellbutrin SR) albuterol sulfate 90 mcg/actuation 2 puff inhalation Q6H PRN 03/08/24 Unknown Rx aerosol inhaler shortness of breath or wheezing #8.5 grams minocycline 100 mg capsule 100 mg PO BID #60 caps 03/08/24 Unknown Rx glimepiride 4 mg tablet 4 mg PO .BID #180 tabs 03/15/24 Unknown Rx metformin 500 mg tablet,extended 500 mg PO DAILY #90 tabs 03/15/24 Unknown Rx release 24 hr albuterol sulfate 90 mcg/actuation 2 puff inhalation Q4H PRN PRN 04/24/24 Unknown Rx aerosol inhaler (Ventolin HFA) Wheezing #1 device prednisone 20 mg tablet 40 mg (2 x 20 mg) PO DAILY 6 days 04/24/24 Unknown Rx #12 tabs Allergy/AdvReac Type Severity Reaction Status Date / Time morphine AdvReac Nausea/Vom/ Verified 04/24/24 19:32 Diarrhea Family History Father Dementia Mother Heart disease CVA (cerebral vascular accident) Sister Uterine cancer Surgical History History of endometrial ablation History of cholecystectomy History of ectopic History of bilateral breast reduction surgery Social History household members: none current occupational status: employed current occupation: [employer] [facility] Smoking Status: Never smoker Electronic Cigarette Use: not used alcohol intake: current alcohol intake frequency: a few times a month substance use type: marijuana what type of physical activity do you participate in: walking frequency: daily do you feel safe at home: Yes ROS <MANOJ Weir - Last Filed: 04/24/24 20:26> ROS ED ROS Narrative Constitutional: Negative for fever, chills, malaise. CVS: Negative for palpitations, chest pain. Respiratory: Positive for shortness of breath, cough. Negative for orthopnea. GI: Negative for abdominal pain, nausea, vomiting. EXAM <MANOJ Weir - Last Filed: 04/24/24 20:26> Physical Exam Narrative Exam Narrative: CONST: Patient sitting in no acute distress. EYES: Normal inspection. NECK: Normal inspection. RESP: Speaking in full sentences, no respiratory distress, CTAB with prolonged expiratory phase. CVS: Regular rate and rhythm, no murmur, no gallop. SKIN: Color normal, no rash, warm, dry, intact. EXTREMITIES: Normal appearance, no pedal edema. NEURO: Alert and answering questions appropriately. PSYCH: Normal affect. Const Vital Signs: 04/24/24 19:29 04/24/24 19:32 04/24/24 19:36 Temperature 98 F 98 F Temperature Source Oral Oral Pulse Rate 71 71 Respiratory Rate 20 H 20 H Respiratory Effort Normal Non-Labored Respiratory Pattern Normal Blood Pressure 124/66 H 124/66 H Blood Pressure Mean 85 85 Pulse Ox 91 91 Oxygen Delivery Method Room Air Room Air <Dr. Dav Arriaga MD - Last Filed: 04/24/24 20:21> Physical Exam Const Vital Signs: 04/24/24 19:29 04/24/24 19:32 04/24/24 19:36 Temperature 98 F 98 F Temperature Source Oral Oral Pulse Rate 71 71 Respiratory Rate 20 H 20 H Respiratory Effort Normal Non-Labored Respiratory Pattern Normal Blood Pressure 124/66 H 124/66 H Blood Pressure Mean 85 85 Pulse Ox 91 91 Oxygen Delivery Method Room Air Room Air MDM <MANOJ Weir - Last Filed: 04/24/24 20:26> [facility] Narrative Medical decision making narrative: Differential includes but not limited to viral URI versus pneumonia versus asthma exacerbation 54-year-old female with asthma presents with 8 to 9 days of productive cough and shortness of breath. She states her asthma flares up with upper respiratory infections. She is using an albuterol inhaler. She appears well and nontoxic. Vital signs stable. In triage she was 91% on room air but during my exam she is 94% or above. She speaking full sentences in no distress. No retractions. No stridor or wheezing. She does have a prolonged expiratory phase. Chest x-ray is negative and ambulatory pulse ox was 94% or above show she is appropriate for outpatient management. I suspect viral URI and asthma exacerbation. Since she has had symptoms for over a week I do not think a viral swab is indicated. I provided a refill of her albuterol inhaler and a prednisone burst 40 mg x 1 week. First dose given in ED. She was discharged in stable condition. I have personally performed a face to face assessment of the patient and have reviewed the CARLOS Note. I performed a substantive portion of the visit including all aspects of the following. My sierra findings include: History is 54-year-old female history of asthma URI symptoms for the last week and having shortness of breath. No chest pain. No hemoptysis. Mild green sputum. No leg pain or swelling. Believes that she is having an asthma flare. But denies any wheezing. She is using an inhaler at home. Exam is [well-appearing middle-aged female. Vital signs stable afebrile. H EENT exam pupils round react light. Moist mucous membranes. Neck nontender no JVD. Lungs. Equal and symmetrical bilaterally but she has a prolonged expiratory phase bilaterally. Heart regular rhythm rate about 70 no murmur. Chest wall ribs nontender. Abdomen soft nontender. Moving all 4 extremities. Nontender no edema. No calf tenderness. Neurologically she is awake alert no focal motor deficits.] Medical Decision Making [chest x-ray obtained 2 views AP lateral shows no acute abnormality. Normal cardiac silhouette. No pneumonia. No effusions. Patient be discharged home refill of her inhaler. Prednisone 40 mg a day for a week. Given a dose here. Follow-up as needed.] Other additions or changes: [None] <Dr. Dav Arriaga MD - Last Filed: 04/24/24 20:21> [facility] Narrative Medical decision making narrative: I have personally performed a face to face assessment of the patient and have reviewed the CARLOS Note. I performed a substantive portion of the visit including all aspects of the following. My sierra findings include: History is 54-year-old female history of asthma URI symptoms for the last week and having shortness of breath. No chest pain. No hemoptysis. Mild green sputum. No leg pain or swelling. Believes that she is having an asthma flare. But denies any wheezing. She is using an inhaler at home. Exam is [well-appearing middle-aged female. Vital signs stable afebrile. H EENT exam pupils round react light. Moist mucous membranes. Neck nontender no JVD. Lungs. Equal and symmetrical bilaterally but she has a prolonged expiratory phase bilaterally. Heart regular rhythm rate about 70 no murmur. Chest wall ribs nontender. Abdomen soft nontender. Moving all 4 extremities. Nontender no edema. No calf tenderness. Neurologically she is awake alert no focal motor deficits.] Medical Decision Making [chest x-ray obtained 2 views AP lateral shows no acute abnormality. Normal cardiac silhouette. No pneumonia. No effusions. Patient be discharged home refill of her inhaler. Prednisone 40 mg a day for a week. Given a dose here. Follow-up as needed.] Other additions or changes: [None] History & Record Review Discussion w/independent historian: Patient and Family Radiography Chest X-Ray - ED: 2 View, Read by ED Physician, Normal, Heart, Lungs, Mediastinum, Bony Structures, No Acute Disease and Chronic Changes Diagnostic Testing: Chest x-ray, 2 views, AP and lateral, interpreted by myself shows no acute abnormality. Normal cardiac silhouette. Normal lung slater. No effusions. Discharge Plan Triage Chief Complaint: General Illness ED Midlevel Provider: Renetta Santiago ED Provider: Dav Arriaga Dx/Rx/DC Orders Clinical Impression: Viral URI, Asthma exacerbation Instructions: Asthma Prescriptions: New albuterol sulfate [Ventolin HFA] 90 mcg/actuation HFA aerosol inhaler 2 puff inhalation Q4H PRN PRN (Reason: Wheezing) Qty: 1 0RF prednisone 20 mg tablet 40 mg PO DAILY 6 Days Qty: 12 0RF No Action (DME) blood pressure monitor Kit See Rx Instructions .Route Qty: 1 0RF Rx Instructions: As directed aspirin 81 MG tablet,delayed release (DR/EC) 81 mg PO DAILY ibuprofen 600 MG tablet 600 mg PO Q6H PRN PRN (Reason: Pain Score 6-10) Qty: 30 0RF buspirone 10 mg tablet 10 mg PO TID Qty: 270 1RF trazodone 50 mg tablet 50 mg PO QHS PRN (Reason: insomnia) Qty: 90 1RF valacyclovir [Valtrex] 500 mg tablet 500 mg PO BID Qty: 6 0RF losartan 100 mg tablet 100 mg PO DAILY Qty: 30 5RF gabapentin 100 mg capsule 100 mg PO QHS Qty: 90 0RF escitalopram oxalate [Lexapro] 5 mg tablet 5 mg PO DAILY Qty: 30 4RF pantoprazole 40 mg tablet,delayed release (DR/EC) 40 mg PO DAILY Qty: 90 1RF nadolol 40 mg tablet See Rx Instructions .ROUTE .COMPLEX Qty: 30 5RF Dose Instruction: TAKE 1 TABLET BY MOUTH EVERY DAY Rx Instructions: TAKE 1 TABLET BY MOUTH EVERY DAY spironolactone 50 mg tablet 50 mg PO BID Qty: 60 5RF bupropion HCl [Wellbutrin SR] 100 mg tablet sustained-release 12 hr 100 mg PO BID Qty: 60 2RF atorvastatin 10 mg tablet 10 mg PO QHS Qty: 30 2RF albuterol sulfate 90 mcg/actuation HFA aerosol inhaler 2 puff inhalation Q6H PRN (Reason: shortness of breath or wheezing) Qty: 8.5 0RF minocycline 100 mg capsule 100 mg PO BID Qty: 60 0RF glimepiride 4 mg tablet 4 mg PO .BID Qty: 180 1RF metformin 500 mg tablet extended release 24 hr 500 mg PO DAILY Qty: 90 1RF Primary Care Provider: Clementina Jay Referrals: Clementina Jay MD [Primary Care Provider] - Activity Restrictions/Additional Instructions: Continue 2 puffs of your inhaler every 4 hours as needed and take the steroids daily. You can take [id number] Mucinex as needed. Follow-up with your primary care doctor. If symptoms worsen come back to the ER. Print Language: Peruvian Disposition Disposition: Home, Self Care
--- NOTE | 2024-04-24 19:45 | RAD_ITS ---
PROCEDURE: CHEST PA AND LATERAL REASON FOR EXAM: COUGH. TECHNIQUE: PA and lateral chest. COMPARISON: 04/06/2023 portable chest. FINDINGS: Lungs: Lungs clear of pneumonia and congestion. Pleura: No pleural effusions, thickening, or pneumothorax. Heart: Normal in size and configuration. Mediastinum/Adelia: Unremarkable. Great vessels: Unremarkable. Bones/soft tissues: Unremarkable. RAD/Chest PA and Lateral IMPRESSION: No active cardiopulmonary disease.. Reading Location: [facility]
[2024-04-24 20:01] VITALS: O2SAT 95
[2024-04-24] MEDS: predniSONE 20 MG Tablet 40 MG PO (20:26)
[2024-04-24 20:27] VITALS: BP 124/66; PULSE 71; RESP 20; TEMP 36.6; O2SAT 91
== END 2024-04-24 20:28 | disposition home or self-care (01) ==
PROVIDERS: Emergency Provider Emergency Medicine; PCP Internal Medicine; Visit Provider Emergency Medicine
DX: J06.9 Acute upper respiratory infection, unspecified (principal); E11.40 Type 2 diabetes mellitus with diabetic neuropathy, unspecified; J45.901 Unspecified asthma with (acute) exacerbation; E78.5 Hyperlipidemia, unspecified; I10 Essential (primary) hypertension; K21.9 Gastro-esophageal reflux disease without esophagitis
CPT/HCPCS: 71046; 99283

== ENCOUNTER → 2024-08-17 | Outpatient (CLI) | payer OTHER, SELFPAY ==
[2024-08-17 12:47] LABS: Hematocrit 38.7 % (37-47); Hemoglobin 12.8 g/dL (12.0-15.0); Immature Granulocytes Count 0.140 X10^3/uL (0.0-0.0); Mean Corp Hgb Conc 33.1 g/dL (32-36); Mean Corpuscular Volume 87.2 fL (81-99); Mean Platelet Vol. 11.2 fl (6.2-12.0); NRBC Flagged by Analyzer 0 % (0-5); Platelet Count 218 K/mm3 (150-450); RBC Distribution Width CV 12.3 % (11.6-14.6); RBC Distribution Width SD 39.1 fl (35.1-43.9); Red Blood Count 4.44 M/mm3 (4.2-5.4); White Blood Count 9.2 K/mm3 (4.4-11.0)
[2024-08-17 13:12] LABS: AST(SGOT) 14 U/L (<=31); Alanine Aminotransfer ALT/SGPT 18 U/L (<=34); Albumin, Serum 4.0 g/dL (3.5-5.0); Alkaline Phosphatase 67 U/L (35-104); Anion Gap 14 (5-15); BUN 24 mg/dL (4-19); BUN/Creat Ratio 37.0 RATIO (10-20); Calcium,Total 9.5 mg/dL (7.6-11.0); Carbon Dioxide 22.1 mmol/L (21.0-32.0); Chloride 102 mmol/L (98-108); Cholesterol 128 mg/dL (<=200); Globulin 2.9 g/dL (2.2-4.2); Glucose 195 mg/dL (70-99); Low Density Lipoprotein Calc. 49 mg/dL; Potassium 4.5 mmol/L (3.3-5.1); Triglycerides 175 mg/dL; Very Low Density Lipoprotein 35 mg/dL (5-40); cholesterol:hdl ratio screen 2.88
[2024-08-18 18:57] LABS: Creatinine, Urine (random) 140.00 mg/dL (28.00-217.00)
[2024-08-18 18:59] LABS: Microalbumin,Random Urine < 12.0 mg/L (NO RANGE EST.)
== END | disposition home or self-care (01) ==
LOC: BIMLAB 09:10
PROVIDERS: PCP Internal Medicine; Referring Provider Internal Medicine; Visit Provider Internal Medicine
DX: I10 Essential (primary) hypertension (principal); E11.9 Type 2 diabetes mellitus without complications
CPT/HCPCS: 36415; 80053; 80061; 82043; 82570; 85025